=== PATIENT | female | born 1975 | race African-American/Black ===

== ENCOUNTER 2018-10-19 12:37 | Inpatient (IN) | payer MEDICARE, OTHER ==
[~2018-10-19] VITALS: Ht 175.3 cm; Wt 77.1 kg
[2018-10-19] MEDS ORDERED: Morphine Sulfate 4mg/ml Inj (IV/IM USE ONLY) IVP ONE (13:15)
[2018-10-19 13:23] VITALS: BP 119/74
[2018-10-19 13:44] LABS: ANION GAP 7 mmol/L (5-15); BLOOD UREA NITROGEN 9 mg/dL (7-18); CARBON DIOXIDE 25 MMOL/L (21-32); CHLORIDE 106 MMOL/L (98-107); CREATININE 0.9 MG/DL (0.55-1.30); POTASSIUM 3.8 MMOL/L (3.5-5.1); SODIUM 138 MMOL/L (136-145)
[2018-10-19 13:48] LABS: ALANINE AMINOTRANSFERASE 11 U/L (12-78); ALBUMIN 3.7 G/DL (3.4-5.0); ALBUMIN/GLOBULIN RATIO 0.8 (1.0-2.7); ALKALINE PHOSPHATASE 65 U/L (46-116); ASPARTATE AMINO TRANSFERASE 23 U/L (15-37); BILIRUBIN,TOTAL 0.3 MG/DL (0.2-1.0)
[2018-10-19 14:04] LABS: HEMATOCRIT 23.1 % (37.0-47.0); MEAN CORPUSCULAR VOLUME 60 FL (80-99); PLATELET COUNT 146 K/UL (150-450); RED BLOOD COUNT 3.84 M/UL (4.20-5.40); RED CELL DISTRIBUTION WIDTH 15.8 % (11.6-14.8)
[2018-10-19 14:07] LABS: HEMOGLOBIN 6.4 G/DL (12.0-16.0)
[2018-10-19 14:20] VITALS: BP 121/95
--- NOTE | 2018-10-19 14:31 | Emergency Room Report ---
History of Present Illness General Chief Complaint: Abnormal Labs Source: Patient Present Illness HPI 43-year-old female presents ED for evaluation. Patient referred here by Dr. Sommer. Patient states she had labs drawn recently which showed low hemoglobin. Patient states she has history of fibroids and is scheduled for hysterectomy tomorrow. Patient denies any active bleeding. States she feels weak. Notes some pain. Throbbing, 6 out of 10, nonradiating. Denies fevers or chills. No other aggravating relieving factors. Denies any other associated symptoms Allergies: Coded Allergies: NSAIDS (NON-STEROIDAL ANTI-INFLAMMA (Verified Allergy, Unknown, 10/19/18) Patient History Past Medical History: other - fibroids Past Surgical History: other - gastric bypass Pertinent Family History: none Social History: Denies: smoking, alcohol use, drug use Now: No Immunizations: UTD Reviewed Nursing Documentation: PMH: Agreed; PSxH: Agreed Nursing Documentation-PMH Past Medical History: No History, Except For Hx Gastrointestinal Problems: Yes - gastric bipass 2009, uterine fibroids Review of Systems All Other Systems: negative except mentioned in HPI Physical Exam Vital Signs Date Time Temp Pulse Resp B/P (MAP) Pulse Ox O2 Delivery O2 Flow Rate FiO2 10/19/18 12:40 98.4 77 17 119/58 98 Room Air Sp02 EP Interpretation: reviewed, normal General Appearance: no apparent distress, alert, GCS 15, non-toxic Head: normocephalic, atraumatic Eyes: bilateral eye normal inspection, bilateral eye PERRL ENT: hearing grossly normal, normal pharynx, no angioedema, normal voice Neck: full range of motion, supple/symm/no masses Respiratory: chest non-tender, lungs clear, normal breath sounds, speaking full sentences Cardiovascular #1: regular rate, rhythm, no edema Cardiovascular #2: 2+ carotid (R), 2+ carotid (L), 2+ radial (R), 2+ radial (L) , 2+ dorsalis pedis (R), 2+ dorsalis pedis (L) Gastrointestinal: normal bowel sounds, non tender, soft, non-distended, no guarding, no rebound Rectal: deferred Genitourinary: normal inspection, no CVA tenderness Musculoskeletal: back normal, gait/station normal, normal range of motion, non- tender Neurologic: alert, oriented x3, responsive, motor strength/tone normal, sensory intact, speech normal Psychiatric: judgement/insight normal, memory normal, mood/affect normal, no suicidal/homicidal ideation Reflexes: 3+ bicep (R), 3+ bicep (L), 3+ tricep (R), 3+ tricep (L), 3+ knee (R) , 3+ knee (L) Skin: normal color, no rash, warm/dry, well hydrated Lymphatic: no adenopathy Medical Decision Making Diagnostic Impression: Primary Impression: Anemia Qualified Codes: D64.9 - Anemia, unspecified Additional Impression: Fibroids Qualified Codes: D25.9 - Leiomyoma of uterus, unspecified ER Course Hospital Course 88-year-old female presents to ED for evaluation of weakness, poorly low hemoglobin. History of fibroids Differential diagnoses include: anemia requiring transfusion, microcytic anemia , macrocytic anemia, heavy blood loss Clinical course Patient placed on stretcher. After initial history and physical I ordered labs including CBC and type and screen. Labs- hemoglobin/hematocrit 6.4/23.1. Electrolytes okay, no leukocytosis 4 units PRBCs ordered. Vital stable. Patient scheduled for surgery tomorrow. patient will be admitted to Dr Sommer Diagnosis - anemia, fibroids Admitted to floor in serious condition Labs Test 10/19/18 13:20 White Blood Count 4.0 K/UL (4.8-10.8) Red Blood Count 3.84 M/UL (4.20-5.40) Hemoglobin 6.4 G/DL (12.0-16.0) Hematocrit 23.1 % (37.0-47.0) Mean Corpuscular Volume 60 FL (80-99) Mean Corpuscular Hemoglobin 16.7 PG (27.0-31.0) Mean Corpuscular Hemoglobin Concent 27.6 G/DL (32.0-36.0) Red Cell Distribution Width 15.8 % (11.6-14.8) Platelet Count 146 K/UL (150-450) Mean Platelet Volume 6.3 FL (6.5-10.1) Neutrophils (%) (Auto) % (45.0-75.0) Lymphocytes (%) (Auto) % (20.0-45.0) Monocytes (%) (Auto) % (1.0-10.0) Eosinophils (%) (Auto) % (0.0-3.0) Basophils (%) (Auto) % (0.0-2.0) Differential Total Cells Counted 100 Neutrophils % (Manual) 31 % (45-75) Lymphocytes % (Manual) 58 % (20-45) Monocytes % (Manual) 8 % (1-10) Eosinophils % (Manual) 2 % (0-3) Basophils % (Manual) 1 % (0-2) Band Neutrophils 0 % (0-8) Platelet Estimate Decreased Platelet Morphology Normal Hypochromasia 4+ Poikilocytosis 1+ Anisocytosis 1+ Microcytosis 4+ Prothrombin Time 10.7 SEC (9.30-11.50) Prothromb Time International Ratio 1.0 (0.9-1.1) Activated Partial Thromboplast Time 25 SEC (23-33) Sodium Level 138 MMOL/L (136-145) Potassium Level 3.8 MMOL/L (3.5-5.1) Chloride Level 106 MMOL/L (98-107) Carbon Dioxide Level 25 MMOL/L (21-32) Anion Gap 7 mmol/L (5-15) Blood Urea Nitrogen 9 mg/dL (7-18) Creatinine 0.9 MG/DL (0.55-1.30) Estimat Glomerular Filtration Rate > 60 mL/min (>60) Glucose Level 88 MG/DL (74-106) Calcium Level 9.0 MG/DL (8.5-10.1) Total Bilirubin 0.3 MG/DL (0.2-1.0) Aspartate Amino Transf (AST/SGOT) 23 U/L (15-37) Alanine Aminotransferase (ALT/SGPT) 11 U/L (12-78) Alkaline Phosphatase 65 U/L (46-116) Total Protein 8.2 G/DL (6.4-8.2) Albumin 3.7 G/DL (3.4-5.0) Globulin 4.5 g/dL Albumin/Globulin Ratio 0.8 (1.0-2.7) Lipase 120 U/L (73-393) Last Vital Signs Date Time Temp Pulse Resp B/P (MAP) Pulse Ox O2 Delivery O2 Flow Rate FiO2 10/19/18 14:20 68 17 121/95 98 Room Air 10/19/18 13:23 97.7 Status: improved Disposition: ADMITTED INPATIENT Condition: Serious Scripts No Active Prescriptions or Reported Meds Referrals: Kendrick Sommer MD (PCP) Raul Vallejo MD Oct 19, 2018 14:31
[2018-10-19] MEDS ORDERED: Zolpidem 5mg tab ORAL PRN (14:45)
[2018-10-19 16:00] VITALS: BP 126/77
[2018-10-19] MEDS: HYDROmorphone 1mg/ml Carpuject IVP PRN ×2 (16:05→20:17)
[2018-10-19 20:11] VITALS: BP 116/68
[2018-10-19] MEDS: Zolpidem 5mg tab ORAL PRN (21:06)
--- NOTE | 2018-10-19 21:15 | Consultation ---
DATE OF CONSULTATION: 10/19/2018 INTERNAL MEDICINE CONSULTATION HISTORY OF PRESENT ILLNESS: The patient is the 43-year-old woman referred by Dr. Sommer for preoperative medical evaluation and management prior to planned hysterectomy. The patient was found to have painful menstrual periods. She is known to have large fibroids in her uterus, has had two embolizations in the past. She is now scheduled for hysterectomy. PAST MEDICAL HISTORY: Include gastric bypass surgery in 2009. She lost 110 pounds. As noted, she had embolization in the past. She has had a section in 2000. She has a seizure disorder, but has had no seizures since 2001, on no medications. She has chronic anemia. ALLERGIES: None. MEDICATIONS: Pain medications for heavy menstrual periods . REVIEW OF SYSTEMS: Otherwise unremarkable. PHYSICAL EXAMINATION: GENERAL: The patient is alert and responds appropriately. VITAL SIGNS: Show normal findings. She is 5 feet and 9 inches. She is 170 pounds. HEENT: Head is normocephalic. NECK: No jugular venous distention. CHEST: Clear. CARDIAC: Rhythm is regular. ABDOMEN: Soft and nontender. The uterus is massive up to the xiphoid process and firm. The liver and spleen cannot be felt. There is no ascites. EXTREMITIES: No clubbing, cyanosis, or edema. LABORATORY STUDIES: Laboratory were studies were done in the emergency department and show severe anemia. IMPRESSIONS: 1. Severe anemia. 2. Uterine leiomyomata with massively enlarged uterus. 3. Recurrent bleeding. 4. History of morbid obesity with gastric bypass surgery. PLAN: The patient will have blood transfusions this evening to prepare for surgery tomorrow. I will follow up in the postoperative period. Miguel A Meredith M.D. DR: Mireya JOB#: [id number] CC:
[2018-10-19 21:31] VITALS: BP 115/73
[2018-10-19 21:46] VITALS: BP 115/75
[2018-10-20] VITALS (17 sets, daily range): BP systolic 97–135; BP diastolic 55–80
[2018-10-20] MEDS: HYDROmorphone 1mg/ml Carpuject IVP PRN ×2 (01:44→05:40)
[2018-10-20 02:31] LABS: HEMATOCRIT 24.1 % (37.0-47.0); HEMOGLOBIN 7.3 G/DL (12.0-16.0); MEAN CORPUSCULAR VOLUME 65 FL (80-99); PLATELET COUNT 110 K/UL (150-450); RED BLOOD COUNT 3.71 M/UL (4.20-5.40); RED CELL DISTRIBUTION WIDTH 20.7 % (11.6-14.8); WHITE BLOOD COUNT 5.4 K/UL (4.8-10.8)
[2018-10-20] MEDS: Dextrose 5%/Lactated Ringer's 1,000 ML IV SCH ×3 (05:34→23:01)
[2018-10-20] MEDS ORDERED: Dextrose 5%/Lactated Ringer's 1,000 ML IV SCH (06:00)
--- NOTE | 2018-10-20 09:08 | General Progress Note ---
Assessment/Plan Assessment/Plan 1. Severe anemia. 2. Uterine leiomyomata with massively enlarged uterus. 3. Recurrent bleeding. 4. History of morbid obesity with gastric bypass surgery. Hgb still low after 2 u another 2 u ordered surgery today c/o pain not controlled Subjective Constitutional: Denies: fever Genitourinary: Reports: pain Allergies: Coded Allergies: NSAIDS (NON-STEROIDAL ANTI-INFLAMMA (Verified Allergy, Unknown, 10/19/18) Objective Last 24 Hour Vital Signs Date Time Temp Pulse Resp B/P (MAP) Pulse Ox O2 Delivery O2 Flow Rate FiO2 10/20/18 08:00 98.9 75 19 98/59 (72) 100 10/20/18 04:00 98.0 66 18 106/61 (76) 98 10/20/18 00:25 97.5 64 18 101/55 (70) 98 10/19/18 21:46 97.4 84 115/75 (88) 10/19/18 21:31 97.8 79 115/73 (87) 10/19/18 21:00 Room Air 10/19/18 20:11 97.8 69 19 116/68 (84) 100 10/19/18 16:00 99.2 83 19 126/77 (93) 100 10/19/18 15:00 Room Air 10/19/18 14:30 98.0 74 18 124/78 100 Room Air 10/19/18 14:20 68 17 121/95 98 Room Air 10/19/18 13:50 97.7 10/19/18 13:23 97.7 70 19 119/74 100 Room Air 10/19/18 12:40 98.4 77 17 119/58 98 Room Air Intake and Output 10/19/18 10/20/18 19:00 07:00 Intake Total 118 ml Balance 118 ml Intake Oral 118 ml # Voids 1 3 Laboratory Tests 10/19/18 13:20: White Blood Count 4.0L, Red Blood Count 3.84L, Hemoglobin 6.4*L, Hematocrit 23.1L, Mean Corpuscular Volume 60L, Mean Corpuscular Hemoglobin 16.7L, Mean Corpuscular Hemoglobin Concent 27.6L, Red Cell Distribution Width 15.8H, Platelet Count 146L, Mean Platelet Volume 6.3L, Neutrophils (%) (Auto) , Lymphocytes (%) (Auto) , Monocytes (%) (Auto) , Eosinophils (%) (Auto) , Basophils (%) (Auto) , Differential Total Cells Counted 100, Neutrophils % ( Manual) 31L, Lymphocytes % (Manual) 58H, Monocytes % (Manual) 8, Eosinophils % ( Manual) 2, Basophils % (Manual) 1, Band Neutrophils 0, Platelet Estimate DecreasedL, Platelet Morphology Normal, Hypochromasia 4+, Poikilocytosis 1+, Anisocytosis 1+, Microcytosis 4+, Prothrombin Time 10.7, Prothromb Time International Ratio 1.0, Activated Partial Thromboplast Time 25, Sodium Level 138, Potassium Level 3.8, Chloride Level 106, Carbon Dioxide Level 25, Anion Gap 7, Blood Urea Nitrogen 9, Creatinine 0.9, Estimat Glomerular Filtration Rate > 60, Glucose Level 88, Calcium Level 9.0, Total Bilirubin 0.3, Aspartate Amino Transf (AST/SGOT) 23, Alanine Aminotransferase (ALT/SGPT) 11L, Alkaline Phosphatase 65, Total Protein 8.2, Albumin 3.7, Globulin 4.5, Albumin/Globulin Ratio 0.8L, Lipase 120 10/20/18 01:35: White Blood Count 5.4, Red Blood Count 3.71L, Hemoglobin 7.3L, Hematocrit 24.1L , Mean Corpuscular Volume 65#L, Mean Corpuscular Hemoglobin 19.6L, Mean Corpuscular Hemoglobin Concent 30.2L, Red Cell Distribution Width 20.7H, Platelet Count 110L, Mean Platelet Volume 6.1L, Neutrophils (%) (Auto) , Lymphocytes (%) (Auto) , Monocytes (%) (Auto) , Eosinophils (%) (Auto) , Basophils (%) (Auto) Height (Feet): 5 Height (Inches): 9.00 Weight (Pounds): 170 General Appearance: no apparent distress Cardiovascular: normal rate Respiratory/Chest: lungs clear Miguel A Meredith MD Oct 20, 2018 09:08
[2018-10-20] MEDS ORDERED: Bupivacaine w/Epi 0.25% 30ml Vial INJ ONE (10:56)
[2018-10-20] MEDS ORDERED: Bacitracin Oint 15gm Tube TOPIC ONE (10:57)
[2018-10-20] MEDS ORDERED: Zemuron 50mg/5ml Inj IV ONE (11:45)
[2018-10-20] MEDS ORDERED: Morphine Sulfate 10mg/ml Inj ONE (11:48)
[2018-10-20] MEDS ORDERED: Ketamine 500mg Inj ONE (11:48)
[2018-10-20] MEDS ORDERED: Metoclopramide 10mg/2ml Inj ONE (11:49)
[2018-10-20] MEDS ORDERED: Lidocaine 1% MPF 10mg/ml 5ml ONE (11:49)
[2018-10-20] MEDS ORDERED: Propofol 200mg/20ml IV ONE (11:49)
[2018-10-20] MEDS ORDERED: NS Irrig 1000ml ONE (11:50)
[2018-10-20] MEDS ORDERED: Sterile Water Irrig 1000ml IRRIG ONE (11:50)
--- NOTE | 2018-10-20 11:56 | Pre-Procedure Note/Attestation ---
Pre-Procedure Note/Attestation Complete Prior to Procedure Planned Procedure: not applicable Procedure Narrative: sub total abdominal hysterectomy, lysis of adhesions Indications for Procedure Pre-Operative Diagnosis: pelvic pain, symptomatic myomata Attestation I attest that I discussed the nature of the procedure; its benefits; risks and complications; and alternatives (and the risks and benefits of such alternatives ), prior to the procedure, with the patient (or the patient's legal distribution sales representative). I attest that, if there was a reasonable possibility of needing a blood transfusion, the patient (or the patient's legal distribution sales representative) was given the [facility] standardized written summary, pursuant to the [place]dy [place]a Blood Safety Act ([place] Health and Safety Code # 1645, as amended). I attest that I re-evaluated the patient just prior to the surgery and that there has been no change in the patient's H&P, except as documented below: Kendrick Sommer MD Oct 20, 2018 11:56
[2018-10-20 13:50] LABS: HEMATOCRIT 29.1 % (37.0-47.0); HEMOGLOBIN 8.8 G/DL (12.0-16.0); MEAN CORPUSCULAR VOLUME 68 FL (80-99); PLATELET COUNT 82 K/UL (150-450); RED BLOOD COUNT 4.25 M/UL (4.20-5.40); RED CELL DISTRIBUTION WIDTH 21.4 % (11.6-14.8); WHITE BLOOD COUNT 5.9 K/UL (4.8-10.8)
--- NOTE | 2018-10-20 14:04 | Anethesia Preoperative Eval ---
Anesthesia Pre-op PMH/ROS General Date of Evaluation: Oct 20, 2018 Time of Evaluation: 11:50 Anesthesiologist: nanette ASA Score: ASA 2 Mallampati Score Class I : Soft palate, uvula, fauces, pillars visible Class II: Soft palate, uvula, fauces visible Class III: Soft palate, base of uvula visible Class IV: Only hard plate visible Mallampati Classification: Class II Surgeon: silvia Diagnosis: fibroids Surgical Procedure: myomectomy Anesthesia History: none Family History: no anesthesia problems Allergies: Coded Allergies: NSAIDS (NON-STEROIDAL ANTI-INFLAMMA (Verified Allergy, Unknown, 10/19/18) Medications: see eMAR Patient NPO?: Yes NPO Date: Oct 20, 2018 NPO Time: 0000 Past Medical History Cardiovascular: Denies: HTN, CAD, MT, valve dz, arrhythmia, other Pulmonary: Denies: asthma, COPD, MINESH, other Gastrointestinal/Genitourinary: Denies: GERD, CRI, ESRD, other Neurologic/Psychiatric: Denies: dementia, CVA, depression/anxiety, TIA, other Endocrine: Denies: DM, hypothyroidism, steroids, other HEENT: Denies: cataract (L), cataract (R), glaucoma, [place] (L), [place] (R), other Hematology/Immune: Reports: anemia; Denies: DVT, bleeding disorder, other Musculoskeletal/Integumentary: Denies: OA, RA, DJD, DDD, edema, other PSxH Narrative: embolization Anesthesia Pre-op Phys. Exam Physician Exam Last Vital Signs Date Time Temp Pulse Resp B/P (MAP) Pulse Ox O2 Delivery O2 Flow Rate FiO2 10/20/18 09:00 Room Air 10/20/18 08:00 98.9 75 19 98/59 (72) 100 Constitutional: NAD Neurologic: CN 2-12 intact Cardiovascular: RRR Respiratory: CTA Gastrointestinal: S/NT/ND Airway Exam Mallampati Classification 2 Mallampati Score: Class II MO: full Neck: normal ROM: full Dentures: no upper, no lower Anesthesia Pre-op A/P Labs Hematology Test 10/20/18 01:35 10/20/18 13:00 White Blood Count 5.4 K/UL (4.8-10.8) 5.9 K/UL (4.8-10.8) Red Blood Count 3.71 M/UL (4.20-5.40) L 4.25 M/UL (4.20-5.40) Hemoglobin 7.3 G/DL (12.0-16.0) L 8.8 G/DL (12.0-16.0) L Hematocrit 24.1 % (37.0-47.0) L 29.1 % (37.0-47.0) L Mean Corpuscular Volume 65 FL (80-99) #L 68 FL (80-99) L Mean Corpuscular Hemoglobin 19.6 PG (27.0-31.0) L 20.6 PG (27.0-31.0) L Mean Corpuscular Hemoglobin Concent 30.2 G/DL (32.0-36.0) L 30.1 G/DL (32.0-36.0) L Red Cell Distribution Width 20.7 % (11.6-14.8) H 21.4 % (11.6-14.8) H Platelet Count 110 K/UL (150-450) L 82 K/UL (150-450) L Mean Platelet Volume 6.1 FL (6.5-10.1) L 6.2 FL (6.5-10.1) L Neutrophils (%) (Auto) % (45.0-75.0) % (45.0-75.0) Lymphocytes (%) (Auto) % (20.0-45.0) % (20.0-45.0) Monocytes (%) (Auto) % (1.0-10.0) % (1.0-10.0) Eosinophils (%) (Auto) % (0.0-3.0) % (0.0-3.0) Basophils (%) (Auto) % (0.0-2.0) % (0.0-2.0) Neutrophils % (Manual) Pending Lymphocytes % (Manual) Pending Platelet Estimate Pending Platelet Morphology Pending Studies Pre-op Studies: EKG - s Risk Assessment & Plan Assessment: VSS Plan: general Status Change Before Surgery: No Pre-Antibiotics Drug: ancef Given Within 1 Hr of Incision: Yes Time Given: 12:10 Madhavi Murry CRNA Oct 20, 2018 14:04
[2018-10-20] MEDS ORDERED: Neostigmine 1mg/ml 10ml Inj ONE (14:10)
[2018-10-20] MEDS ORDERED: Glycopyrrolate 0.2mg/ml 1ml Vial ONE (14:10)
[2018-10-20 14:22] LABS: APPEARANCE,URINE SLIGHTLY CLOUDY; BILIRUBIN, URINE NEGATIVE (NEGATIVE); COLOR,URINE PALE YELLOW; GLUCOSE, URINE (UA) NEGATIVE (NEGATIVE); KETONES,URINE NEGATIVE (NEGATIVE); LEUKOCYTE ESTERASE ,URINE NEGATIVE (NEGATIVE); NITRITE,URINE POSITIVE (NEGATIVE); PH,URINE 7 (4.5-8.0); PROTEIN,URINE 1+ (NEGATIVE); UROBILINOGEN,URINE NORMAL MG/DL (0.0-1.0)
[2018-10-20] MEDS ORDERED: fentaNYL 100 mcg/2 mL IV ONE (14:51)
[2018-10-20] MEDS: fentaNYL 100 mcg/2 mL IV PRN ×2 (14:52→15:02)
[2018-10-20] MEDS ORDERED: DiphenhydrAMINE 50mg/ml Inj ONE (14:53)
--- NOTE | 2018-10-20 14:53 | Immediate Post-Op Evaluation ---
Immediate Post-Op Evalulation Immediate Post-Op Evalulation Procedure: myomectomy Date of Evaluation: Oct 20, 2018 Time of Evaluation: 14:54 IV Fluids: 1000 Blood Products: 250 Estimated Blood Loss: 100 Urinary Output: 400 Blood Pressure Systolic: 132 Blood Pressure Diastolic: 81 Pulse Rate: 71 Respiratory Rate: 14 O2 Sat by Pulse Oximetry: 100 Temperature (Fahrenheit): 97.5 Nausea: No Vomiting: No Complications none Patient Status: awake, reacts, patent Hydration Status: adequate Drug: ancef Given Within 1 Hr of Incision: Yes Madhavi Murry CRNA Oct 20, 2018 14:53
[2018-10-20] MEDS ORDERED: Isovue-300 100ml vial INJ PRN (14:54)
[2018-10-20] MEDS ORDERED: LORazepam Inj 2mg/ml 1ml IV PRN (15:00)
[2018-10-20] MEDS ORDERED: Hydromorphone 0.5mg/0.5ml inj IVP PRN (15:00)
[2018-10-20] MEDS ORDERED: DiphenhydrAMINE 50mg/ml Inj IVP PRN (15:00)
--- NOTE | 2018-10-20 17:03 | 48 Hour Post Anesthesia Eval ---
Post Anesthesia Evaluation Procedure: myomectomy Date of Evaluation: Oct 20, 2018 Time of Evaluation: 17:03 Blood Pressure Systolic: 125 0: 77 Pulse Rate: 75 Respiratory Rate: 14 O2 Sat by Pulse Oximetry: 98 Airway: patent Nausea: No Vomiting: No Hydration Status: adequate Cardiopulmonary Status: stable Mental Status/LOC: patient returned to baseline Follow-up Care/Observations: na Post-Anesthesia Complications: none Follow-up care needed: N/A Madhavi Murry CRNA Oct 20, 2018 17:03
--- NOTE | 2018-10-20 17:21 | Brief Operative Note ---
Immediate Post Operative Note Operative Note Chief Complaint: pelvic pain, menorrhagia Pre-op Diagnosis: pelvic pain, symptomatic myomata Procedure: sub total hysterectomy, lysis of adhesions Post-op Diagnosis: same, improved, plus umbilical hernia repair needed Post-op Diagnosis: same as pre-op plus - pelvic small bowel adhesions Surgeon: kendrick murray Engraving Patternmaker: nabeel wise Additional Surgeons: kathrin mejia Anesthesiologist: siobhan duran Anesthesia: general Specimen: yes Complications: none Condition: stable Fluids: 3000 cc crystalloid, i unit prbc Estimated Blood Loss: volume - 100cc Drains: none Implant(s) used?: No - dictation # [id number] Kendrick Murray MD Oct 20, 2018 17:21
--- NOTE | 2018-10-20 21:03 | Brief Operative Note ---
Immediate Post Operative Note Operative Note Pre-op Diagnosis: pelvic pain, symptomatic myomata Procedure: subtotal hysterectomy; lysis of adhesions Post-op Diagnosis: pelvic pain, symptomatic myomata Surgeon: Kemal Additional Surgeons: Gloria Anesthesia: general Specimen: yes Complications: none Condition: stable Fluids: see records Estimated Blood Loss: volume Drains: none Implant(s) used?: No Kaushik Castro Oct 20, 2018 21:03
[2018-10-20] MEDS ORDERED: D5W 275ml ONE (22:46)
[2018-10-21] VITALS: BP 111/64
[2018-10-21 04:00] VITALS: BP 116/71
[2018-10-21] MEDS: Dextrose 5%/Lactated Ringer's 1,000 ML IV SCH (06:59)
[2018-10-21 07:57] LABS: HEMATOCRIT 32.4 % (37.0-47.0); HEMOGLOBIN 9.8 G/DL (12.0-16.0); MEAN CORPUSCULAR VOLUME 68 FL (80-99); PLATELET COUNT 62 K/UL (150-450); RED BLOOD COUNT 4.75 M/UL (4.20-5.40); RED CELL DISTRIBUTION WIDTH 21.9 % (11.6-14.8); WHITE BLOOD COUNT 9.1 K/UL (4.8-10.8)
[2018-10-21 08:00] VITALS: BP 111/64
[2018-10-21 08:02] LABS: ANION GAP 5 mmol/L (5-15); BLOOD UREA NITROGEN 4 mg/dL (7-18); CARBON DIOXIDE 27 MMOL/L (21-32); CHLORIDE 106 MMOL/L (98-107); CREATININE 0.7 MG/DL (0.55-1.30); POTASSIUM 3.4 MMOL/L (3.5-5.1); SODIUM 138 MMOL/L (136-145)
[2018-10-21] MEDS ORDERED: PCA Education Pamphlet MISC ONE (10:45)
[2018-10-21] MEDS ORDERED: Rate Change PCA 1 Each MISC PRN (10:45)
[2018-10-21] MEDS ORDERED: PCA HYDROmorphone 1mg/ml 30 ML IV PRN (10:45)
--- NOTE | 2018-10-21 10:59 | Diagnostic Imaging Report ---
Indication: Abdominal pain, suspected ureteral injury, status post hysterectomy Technique: IV administration nonionic contrast. No oral contrast utilized. Precontrast and multiphasic postcontrast spiral acquisitions obtained through the abdomen and pelvis Multiplanar reconstructions were generated. Total dose length product 2718 mGycm. CTDIvol(s) 17, 18, 17, 17 mGy. Radiation dose was minimized using automated exposure control Comparison: none Findings: Patient is status post supracervical hysterectomy. Small amount of heterogeneous material below the hysterectomy bed probably mostly represents the residual cervix, possibly with a small amount of blood. Small amount of high attenuation fluid, presumably bloody, is seen in the pelvic cul-de-sac. There is also some fluid adjacent to the tip of the right hepatic lobe. The right ovary appears normal. What is probably the left ovary appears normal, although this is less definitively visualized as there is considerable unopacified bowel in the area. There is a midline incision with overlying skin timur. Gas bubbles are seen within the subcutaneous fat. Infiltration of the midline subcutaneous fat presumably represents postsurgical change with a small amount of blood. There is also likely a tiny hematoma anterior to the bladder. There is free intraperitoneal air present. Both kidneys opacify symmetrically. On the 5 minute delayed images, contrast is seen filling both renal collecting systems and proximal ureters. Contrast is also seen within the bladder. No evidence of contrast extravasation demonstrated. There is considerable fluid within the bladder despite apparent adequate position of Gaspar catheter. There is evidence of prior gastric bypass surgery with an antecolic Sharon limb. There is mild dilatation of the small bowel at the level of the jejunojejunostomy. No small bowel distention otherwise. The distal esophagus is mildly distended. The appendix is not definitely identified, but there are no findings to suggest acute appendicitis. The gallbladder is distended. No definite stones or wall thickening. The liver, bile ducts, pancreas, spleen, adrenals, right kidney are unremarkable. Left kidney demonstrates a subcentimeter low-attenuation lesion which is too small to characterize. The included lung bases demonstrate trace bilateral pleural fluid. There is dependent and compressive atelectatic changes posteriorly, as well as mild basilar interstitial septal thickening on the left. A calcification is seen within the pulmonary parenchyma on the right. The bones are unremarkable. Impression: Postsurgical changes, status post supracervical open hysterectomy, as described. No evidence of ureteral injury or obstruction or other complication. The bladder is distended with urine, despite the presence and adequate position of Gaspar catheter. Dysfunctional Agspar catheter possible Trace bilateral pleural effusions. Basilar atelectatic changes Evidence of prior gastric bypass surgery Distended gallbladder, but no evidence of stones or secondary signs. Other findings as noted, including probable small left renal cyst, old granulomatous disease within the right lung Findings discussed by phone with Dr. Sommer at the time of interpretation The CT scanner at [facility] is accredited by the [employer] and the scans are performed using protocols designed to limit radiation exposure to as low as reasonably achievable to attain images of sufficient resolution adequate for diagnostic evaluation.
--- NOTE | 2018-10-21 11:25 | General Progress Note ---
Assessment/Plan Assessment/Plan 1. Severe anemia. 2. Uterine leiomyomata with massively enlarged uterus. 3. Recurrent bleeding. 4. History of morbid obesity with gastric bypass surgery. 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 K rx Subjective Gastrointestinal/Abdominal: Reports: abdominal pain Allergies: Coded Allergies: NSAIDS (NON-STEROIDAL ANTI-INFLAMMA (Verified Allergy, Unknown, 10/19/18) Objective Last 24 Hour Vital Signs Date Time Temp Pulse Resp B/P (MAP) Pulse Ox O2 Delivery O2 Flow Rate FiO2 10/21/18 09:00 Room Air 10/21/18 08:00 98.9 73 18 111/64 (80) 93 10/21/18 04:00 99.0 77 18 116/71 (86) 100 10/21/18 00:00 98.9 73 18 111/64 (80) 93 10/20/18 21:00 Room Air 10/20/18 20:00 98.8 75 18 118/78 (91) 100 10/20/18 19:20 99.6 92 18 119/78 (92) 100 10/20/18 17:03 75 14 98 10/20/18 17:00 97.8 81 19 121/80 (94) 100 10/20/18 16:30 97.8 73 18 126/72 (90) 100 10/20/18 16:00 98.3 79 20 97/60 (72) 99 10/20/18 16:00 98.0 72 16 125/77 100 Nasal Cannula 3 10/20/18 15:45 74 14 126/79 100 Nasal Cannula 3 10/20/18 15:32 98.0 10/20/18 15:30 74 15 128/76 100 Nasal Cannula 3 10/20/18 15:15 70 14 121/75 100 Nasal Cannula 3 10/20/18 15:02 72 19 128/74 100 Nasal Cannula 3 10/20/18 15:00 74 14 135/75 100 Nasal Cannula 3 10/20/18 14:53 71 14 100 10/20/18 14:52 81 18 127/78 99 Simple Mask 6 10/20/18 14:40 86 17 126/70 99 Simple Mask 6 10/20/18 14:35 81 15 133/70 99 Simple Mask 6 10/20/18 14:30 97.0 80 14 129/66 99 Simple Mask 6 Intake and Output 12/4/18 12/5/18 19:00 07:00 Intake Total 3150 ml 1570 ml Output Total 500 ml 1225 ml Balance 2650 ml 345 ml Intake Oral 240 ml IV Total 1600 ml 1080 ml Blood Product 1550 ml 250 ml Output Urine Total 400 ml 1225 ml Estimated Blood Loss 100 ml Laboratory Tests 10/20/18 13:00: White Blood Count 5.9, Red Blood Count 4.25, Hemoglobin 8.8L, Hematocrit 29.1L, Mean Corpuscular Volume 68L, Mean Corpuscular Hemoglobin 20.6L, Mean Corpuscular Hemoglobin Concent 30.1L, Red Cell Distribution Width 21.4H, Platelet Count 82L, Mean Platelet Volume 6.2L, Neutrophils (%) (Auto) , Lymphocytes (%) (Auto) , Monocytes (%) (Auto) , Eosinophils (%) (Auto) , Basophils (%) (Auto) , Differential Total Cells Counted 100, Neutrophils % ( Manual) 49, Lymphocytes % (Manual) 40, Monocytes % (Manual) 9, Eosinophils % ( Manual) 1, Basophils % (Manual) 0, Band Neutrophils 1, Platelet Estimate DecreasedL, Platelet Morphology Normal, Hypochromasia 3+, Poikilocytosis 1+, Anisocytosis 3+, Microcytosis 2+, Ovalocytes Occasional 10/20/18 13:55: Urine Color Pale yellow, Urine Appearance Slightly cloudy, Urine pH 7, Urine Specific [place] 1.010, Urine Protein 1+H, Urine Glucose (UA) Negative, Urine Ketones Negative, Urine Blood 4+H, Urine Nitrite PositiveH, Urine Bilirubin Negative, Urine Urobilinogen Normal, Urine Leukocyte Esterase Negative, Urine RBC 15-20H, Urine WBC 0-2, Urine Squamous Epithelial Cells Few, Urine Bacteria ManyH, Urine HCG, Qualitative Negative 10/21/18 07:44: White Blood Count 9.1#, Red Blood Count 4.75, Hemoglobin 9.8L, Hematocrit 32.4L , Mean Corpuscular Volume 68L, Mean Corpuscular Hemoglobin 20.6L, Mean Corpuscular Hemoglobin Concent 30.3L, Red Cell Distribution Width 21.9H, Platelet Count 62L, Mean Platelet Volume 5.9L, Neutrophils (%) (Auto) , Lymphocytes (%) (Auto) , Monocytes (%) (Auto) , Eosinophils (%) (Auto) , Basophils (%) (Auto) , Differential Total Cells Counted 100, Neutrophils % ( Manual) 69, Lymphocytes % (Manual) 28, Monocytes % (Manual) 3, Eosinophils % ( Manual) 0, Basophils % (Manual) 0, Band Neutrophils 0, Platelet Estimate DecreasedL, Platelet Morphology Normal, Hypochromasia 2+, Anisocytosis 3+, Microcytosis 3+, Sodium Level 138, Potassium Level 3.4L, Chloride Level 106, Carbon Dioxide Level 27, Anion Gap 5, Blood Urea Nitrogen 4L, Creatinine 0.7, Estimat Glomerular Filtration Rate > 60, Glucose Level 100, Calcium Level 9.0 Height (Feet): 5 Height (Inches): 9.00 Weight (Pounds): 170 General Appearance: no apparent distress Cardiovascular: normal rate Respiratory/Chest: lungs clear Abdomen: soft, tender - at surgical site Miguel A Meredith MD Oct 21, 2018 11:25
[2018-10-21 12:00] VITALS: BP 131/70
--- NOTE | 2018-10-21 12:51 | General Surgery Progress Note ---
General Surgery-Progress Note Subjective Day of Surgery: october 20 Procedure Performed sub total hysterectomy, lysis of adhesions Symptoms: pain same, tolerating diet, voiding well, passing flatus Objective Last 24 Hour Vital Signs Date Time Temp Pulse Resp B/P (MAP) Pulse Ox O2 Delivery O2 Flow Rate FiO2 10/21/18 09:00 Room Air 10/21/18 08:00 98.9 73 18 111/64 (80) 93 10/21/18 04:00 99.0 77 18 116/71 (86) 100 10/21/18 00:00 98.9 73 18 111/64 (80) 93 10/20/18 21:00 Room Air 10/20/18 20:00 98.8 75 18 118/78 (91) 100 10/20/18 19:20 99.6 92 18 119/78 (92) 100 10/20/18 17:03 75 14 98 10/20/18 17:00 97.8 81 19 121/80 (94) 100 10/20/18 16:30 97.8 73 18 126/72 (90) 100 10/20/18 16:00 98.3 79 20 97/60 (72) 99 10/20/18 16:00 98.0 72 16 125/77 100 Nasal Cannula 3 10/20/18 15:45 74 14 126/79 100 Nasal Cannula 3 10/20/18 15:32 98.0 10/20/18 15:30 74 15 128/76 100 Nasal Cannula 3 10/20/18 15:15 70 14 121/75 100 Nasal Cannula 3 10/20/18 15:02 72 19 128/74 100 Nasal Cannula 3 10/20/18 15:00 74 14 135/75 100 Nasal Cannula 3 10/20/18 14:53 71 14 100 10/20/18 14:52 81 18 127/78 99 Simple Mask 6 10/20/18 14:40 86 17 126/70 99 Simple Mask 6 10/20/18 14:35 81 15 133/70 99 Simple Mask 6 10/20/18 14:30 97.0 80 14 129/66 99 Simple Mask 6 I&O Intake and Output 10/20/18 10/21/18 19:00 07:00 Intake Total 3150 ml 1570 ml Output Total 500 ml 1225 ml Balance 2650 ml 345 ml Intake Oral 240 ml IV Total 1600 ml 1080 ml Blood Product 1550 ml 250 ml Output Urine Total 400 ml 1225 ml Estimated Blood Loss 100 ml Dressing: dry Wound: clean, dry, intact Drains: none Cardiovascular: RSR Respiratory: clear Abdomen: soft, flat, scaphoid, tenderness, present bowel sounds Laboratory Tests Test 10/20/18 13:00 10/20/18 13:55 10/21/18 07:44 White Blood Count 5.9 K/UL (4.8-10.8) 9.1 K/UL (4.8-10.8) # Red Blood Count 4.25 M/UL (4.20-5.40) 4.75 M/UL (4.20-5.40) Hemoglobin 8.8 G/DL (12.0-16.0) L 9.8 G/DL (12.0-16.0) L Hematocrit 29.1 % (37.0-47.0) L 32.4 % (37.0-47.0) L Mean Corpuscular Volume 68 FL (80-99) L 68 FL (80-99) L Mean Corpuscular Hemoglobin 20.6 PG (27.0-31.0) L 20.6 PG (27.0-31.0) L Mean Corpuscular Hemoglobin Concent 30.1 G/DL (32.0-36.0) L 30.3 G/DL (32.0-36.0) L Red Cell Distribution Width 21.4 % (11.6-14.8) H 21.9 % (11.6-14.8) H Platelet Count 82 K/UL (150-450) L 62 K/UL (150-450) L Mean Platelet Volume 6.2 FL (6.5-10.1) L 5.9 FL (6.5-10.1) L Neutrophils (%) (Auto) % (45.0-75.0) % (45.0-75.0) Lymphocytes (%) (Auto) % (20.0-45.0) % (20.0-45.0) Monocytes (%) (Auto) % (1.0-10.0) % (1.0-10.0) Eosinophils (%) (Auto) % (0.0-3.0) % (0.0-3.0) Basophils (%) (Auto) % (0.0-2.0) % (0.0-2.0) Differential Total Cells Counted 100 100 Neutrophils % (Manual) 49 % (45-75) 69 % (45-75) Lymphocytes % (Manual) 40 % (20-45) 28 % (20-45) Monocytes % (Manual) 9 % (1-10) 3 % (1-10) Eosinophils % (Manual) 1 % (0-3) 0 % (0-3) Basophils % (Manual) 0 % (0-2) 0 % (0-2) Band Neutrophils 1 % (0-8) 0 % (0-8) Platelet Estimate Decreased L Decreased L Platelet Morphology Normal Normal Hypochromasia 3+ 2+ Poikilocytosis 1+ Anisocytosis 3+ 3+ Microcytosis 2+ 3+ Ovalocytes Occasional Urine Color Pale yellow Urine Appearance Slightly cloudy Urine pH 7 (4.5-8.0) Urine Specific [place] 1.010 (1.005-1.035) Urine Protein 1+ (NEGATIVE) H Urine Glucose (UA) Negative (NEGATIVE) Urine Ketones Negative (NEGATIVE) Urine Blood 4+ (NEGATIVE) H Urine Nitrite Positive (NEGATIVE) H Urine Bilirubin Negative (NEGATIVE) Urine Urobilinogen Normal MG/DL (0.0-1.0) Urine Leukocyte Esterase Negative (NEGATIVE) Urine RBC 15-20 /HPF (0 - 2) H Urine WBC 0-2 /HPF (0 - 2) Urine Squamous Epithelial Cells Few /LPF (NONE/OCC) Urine Bacteria Many /HPF (NONE) H Urine HCG, Qualitative Negative (NEGATIVE) Sodium Level 138 MMOL/L (136-145) Potassium Level 3.4 MMOL/L (3.5-5.1) L Chloride Level 106 MMOL/L (98-107) Carbon Dioxide Level 27 MMOL/L (21-32) Anion Gap 5 mmol/L (5-15) Blood Urea Nitrogen 4 mg/dL (7-18) L Creatinine 0.7 MG/DL (0.55-1.30) Estimat Glomerular Filtration Rate > 60 mL/min (>60) Glucose Level 100 MG/DL (74-106) Calcium Level 9.0 MG/DL (8.5-10.1) Imaging CT urogram, no extravasation, no obstruction, Assessment Post-op Diagnosis same, improved, plus umbilical hernia repair needed Plan Additional Comments ambulate, ACQUISITIONS ANALYST for pain control, low K+ will supplement. Kendrick Sommer MD Oct 21, 2018 12:51
--- NOTE | 2018-10-21 13:17 | Consultation ---
History of Present Illness General Date patient seen: Oct 21, 2018 Chief Complaint: Abnormal Labs Present Illness HPI 43 F with history as noted in H&P who is here for planned subtotal hysterectomy. Prior tubal ligation and large uterus and prior ventral hernia repairs. General surgery called to assist in case of adhesions and adherent bowel. Also to assist with post operative care / management. Allergies: Coded Allergies: NSAIDS (NON-STEROIDAL ANTI-INFLAMMA (Verified Allergy, Unknown, 10/19/18) Medication History No Active Prescriptions or Reported Meds Patient History History Provided By: Patient, Medical Record, PMD Healthcare decision maker Resuscitation status Full Code Advanced Directive on File Past Medical/Surgical History Past Medical/Surgical History: (1) Anemia (2) Fibroids (3) Anemia Review of Systems All Other Systems: negative except mentioned in HPI Physical Exam General Appearance: no apparent distress, alert Lines, tubes and drains: peripheral HEENT: mucous membranes moist Neck: normal inspection Respiratory/Chest: normal breath sounds, no respiratory distress, no accessory muscle use Cardiovascular/Chest: regular rhythm Abdomen: normal bowel sounds, soft, no organomegaly, other - prior umbilical hernia noted with recurrence and mesh palpable. pelvic mass Extremities: normal inspection Skin Exam: warm/dry Neurologic: alert, oriented x 3 Last 24 Hour Vital Signs Date Time Temp Pulse Resp B/P (MAP) Pulse Ox O2 Delivery O2 Flow Rate FiO2 10/21/18 09:00 Room Air 10/21/18 08:00 98.9 73 18 111/64 (80) 93 10/21/18 04:00 99.0 77 18 116/71 (86) 100 10/21/18 00:00 98.9 73 18 111/64 (80) 93 10/20/18 21:00 Room Air 10/20/18 20:00 98.8 75 18 118/78 (91) 100 10/20/18 19:20 99.6 92 18 119/78 (92) 100 10/20/18 17:03 75 14 98 10/20/18 17:00 97.8 81 19 121/80 (94) 100 10/20/18 16:30 97.8 73 18 126/72 (90) 100 10/20/18 16:00 98.3 79 20 97/60 (72) 99 10/20/18 16:00 98.0 72 16 125/77 100 Nasal Cannula 3 10/20/18 15:45 74 14 126/79 100 Nasal Cannula 3 10/20/18 15:32 98.0 10/20/18 15:30 74 15 128/76 100 Nasal Cannula 3 10/20/18 15:15 70 14 121/75 100 Nasal Cannula 3 10/20/18 15:02 72 19 128/74 100 Nasal Cannula 3 10/20/18 15:00 74 14 135/75 100 Nasal Cannula 3 10/20/18 14:53 71 14 100 10/20/18 14:52 81 18 127/78 99 Simple Mask 6 10/20/18 14:40 86 17 126/70 99 Simple Mask 6 10/20/18 14:35 81 15 133/70 99 Simple Mask 6 10/20/18 14:30 97.0 80 14 129/66 99 Simple Mask 6 Intake and Output 10/20/18 10/21/18 19:00 07:00 Intake Total 3150 ml 1570 ml Output Total 500 ml 1225 ml Balance 2650 ml 345 ml Intake Oral 240 ml IV Total 1600 ml 1080 ml Blood Product 1550 ml 250 ml Output Urine Total 400 ml 1225 ml Estimated Blood Loss 100 ml Laboratory Tests Test 10/20/18 13:55 10/21/18 07:44 Urine Color Pale yellow Urine Appearance Slightly cloudy Urine pH 7 (4.5-8.0) Urine Specific [place] 1.010 (1.005-1.035) Urine Protein 1+ (NEGATIVE) H Urine Glucose (UA) Negative (NEGATIVE) Urine Ketones Negative (NEGATIVE) Urine Blood 4+ (NEGATIVE) H Urine Nitrite Positive (NEGATIVE) H Urine Bilirubin Negative (NEGATIVE) Urine Urobilinogen Normal MG/DL (0.0-1.0) Urine Leukocyte Esterase Negative (NEGATIVE) Urine RBC 15-20 /HPF (0 - 2) H Urine WBC 0-2 /HPF (0 - 2) Urine Squamous Epithelial Cells Few /LPF (NONE/OCC) Urine Bacteria Many /HPF (NONE) H Urine HCG, Qualitative Negative (NEGATIVE) White Blood Count 9.1 K/UL (4.8-10.8) # Red Blood Count 4.75 M/UL (4.20-5.40) Hemoglobin 9.8 G/DL (12.0-16.0) L Hematocrit 32.4 % (37.0-47.0) L Mean Corpuscular Volume 68 FL (80-99) L Mean Corpuscular Hemoglobin 20.6 PG (27.0-31.0) L Mean Corpuscular Hemoglobin Concent 30.3 G/DL (32.0-36.0) L Red Cell Distribution Width 21.9 % (11.6-14.8) H Platelet Count 62 K/UL (150-450) L Mean Platelet Volume 5.9 FL (6.5-10.1) L Neutrophils (%) (Auto) % (45.0-75.0) Lymphocytes (%) (Auto) % (20.0-45.0) Monocytes (%) (Auto) % (1.0-10.0) Eosinophils (%) (Auto) % (0.0-3.0) Basophils (%) (Auto) % (0.0-2.0) Differential Total Cells Counted 100 Neutrophils % (Manual) 69 % (45-75) Lymphocytes % (Manual) 28 % (20-45) Monocytes % (Manual) 3 % (1-10) Eosinophils % (Manual) 0 % (0-3) Basophils % (Manual) 0 % (0-2) Band Neutrophils 0 % (0-8) Platelet Estimate Decreased L Platelet Morphology Normal Hypochromasia 2+ Anisocytosis 3+ Microcytosis 3+ Sodium Level 138 MMOL/L (136-145) Potassium Level 3.4 MMOL/L (3.5-5.1) L Chloride Level 106 MMOL/L (98-107) Carbon Dioxide Level 27 MMOL/L (21-32) Anion Gap 5 mmol/L (5-15) Blood Urea Nitrogen 4 mg/dL (7-18) L Creatinine 0.7 MG/DL (0.55-1.30) Estimat Glomerular Filtration Rate > 60 mL/min (>60) Glucose Level 100 MG/DL (74-106) Calcium Level 9.0 MG/DL (8.5-10.1) Height (Feet): 5 Height (Inches): 9.00 Weight (Pounds): 170 Medications Current Medications Medications (Trade) Dose Ordered Sig/Kyleigh Route PRN Reason Start Time Stop Time Status Last Admin Dose Admin Hydromorphone HCl 30 ml @ 0 mls/hr Q24H PRN IV For Pain 10/21/18 10:45 10/23/18 10:44 10/21/18 12:39 Hydromorphone HCl (Dilaudid) 2 mg Q3H PRN SUBQ Severe Pain (Pain Scale 7-10) 10/21/18 10:45 10/23/18 10:44 Hydromorphone HCl (Dilaudid) 2 mg Q4H PRN IVP Moderate Pain (Pain Scale 4-6) 10/21/18 10:45 10/23/18 10:44 10/21/18 12:05 Iopamidol (Isovue-300 100ml) 100 ml NOW PRN INJ Radiology Procedure 10/20/18 14:54 10/21/18 23:59 Miscellaneous Medication (PST SUPERVISOR Rate Change) 1 ea DAILY PRN MISC rate change 10/21/18 10:45 10/23/18 10:44 Miscellaneous Medication (PST SUPERVISOR shift volume) 1 ea Q12HR@0700,1900 MISC 10/21/18 19:00 10/23/18 18:59 Naloxone HCl (Narcan) 0.1 mg PRN IV RR<10 SBP<90 10/21/18 10:45 10/23/18 10:44 Potassium Chloride 30 meq/ Dextrose/Lactated Ringer's 1,015 ml @ 120 mls/hr Q8H28M IV 10/21/18 13:00 11/20/18 12:59 Zolpidem Tartrate (Ambien) 5 mg HSPRN PRN ORAL Insomnia 10/19/18 19:00 10/26/18 18:59 10/19/18 21:06 Assessment/Plan Problem List: (1) Fibroids Assessment & Plan: s/p ex lap, subtotal hysterectomy, lysis of adhesions recovering labs noted abd soft, mild distention, tender, dressings c/d/i -clear liquids -ambulate and out of bed -PST SUPERVISOR -Rx as written -incentive spirometry -AM labs will follow with recs. thank you ICD Codes: D25.9 - Leiomyoma of uterus, unspecified SNOMED: [id number] Qualifiers: Qualified Codes: D25.9 - Leiomyoma of uterus, unspecified Status: stable Kaushik Castro Oct 21, 2018 13:17
[2018-10-21] MEDS: Potassium Chloride 30 MEQ in Dextrose 5%/Lactated Ringer's 1,000 ML IV SCH ×2 (13:29→21:28)
[2018-10-21] MEDS ORDERED: Zolpidem 5mg tab ORAL PRN (14:15)
[2018-10-21 16:00] VITALS: BP 125/78
[2018-10-21] MEDS: PCA shift volume MISC SCH (19:20)
[2018-10-21 20:55] VITALS: BP 124/88
[2018-10-21] MEDS: Zolpidem 5mg tab ORAL PRN (21:08)
[2018-10-22 00:06] VITALS: BP 129/82
[2018-10-22 04:39] VITALS: BP 130/84
[2018-10-22] MEDS: Potassium Chloride 30 MEQ in Dextrose 5%/Lactated Ringer's 1,000 ML IV SCH ×3 (05:31→22:56)
[2018-10-22] MEDS: PCA shift volume MISC SCH (07:33)
[2018-10-22 08:00] VITALS: BP 142/69
[2018-10-22] MEDS: Docusate 100mg cap ORAL SCH ×2 (10:23→18:20)
[2018-10-22] MEDS: oxyCODONE HCL/Acetaminophen 5/325mg ORAL PRN ×4 (10:29→22:53)
--- NOTE | 2018-10-22 11:26 | General Surgery Progress Note ---
General Surgery-Progress Note Subjective Day of Surgery: october 20 Procedure Performed sub total hysterectomy, lysis of adhesions Symptoms: improved, tolerating diet, voiding well, BM Objective Last 24 Hour Vital Signs Date Time Temp Pulse Resp B/P (MAP) Pulse Ox O2 Delivery O2 Flow Rate FiO2 10/22/18 04:39 98.9 77 17 130/84 (99) 98 10/22/18 04:00 16 10/22/18 00:06 98.2 78 18 129/82 (98) 97 10/22/18 00:00 16 10/21/18 21:00 Room Air 10/21/18 20:55 98.4 82 19 124/88 (100) 97 10/21/18 20:00 16 10/21/18 16:00 99.3 82 16 125/78 (94) 100 10/21/18 15:26 Room Air 10/21/18 15:00 16 10/21/18 14:30 16 10/21/18 14:00 16 10/21/18 13:45 16 10/21/18 13:30 16 10/21/18 13:15 16 10/21/18 12:00 99.3 72 18 131/70 (90) 100 I&O Intake and Output 10/21/18 10/22/18 18:59 06:59 Intake Total 1440 ml 840 ml Output Total 950 ml Balance 490 ml 840 ml Intake Oral 120 ml 360 ml IV Total 1320 ml 480 ml Output Urine Total 950 ml # Voids 2 Dressing: dry Wound: clean Drains: none Cardiovascular: RSR Respiratory: clear Abdomen: soft, flat, scaphoid, tenderness, present bowel sounds Assessment Post-op Diagnosis same, improved, plus umbilical hernia repair needed Plan Additional Comments placed on oral analgesic, may be discharged when pain controlled by oral medication. Kendrick Sommer MD Oct 22, 2018 11:26
[2018-10-22 12:00] VITALS: BP 110/72
--- NOTE | 2018-10-22 13:28 | General Progress Note ---
Assessment/Plan Assessment/Plan 1. Severe anemia, improved 2. Uterine leiomyomata with massively enlarged uterus. 3. Recurrent bleeding. 4. History of morbid obesity with gastric bypass surgery. 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 Subjective Constitutional: Reports: fever Gastrointestinal/Abdominal: Reports: abdominal pain - better Allergies: Coded Allergies: NSAIDS (NON-STEROIDAL ANTI-INFLAMMA (Verified Allergy, Unknown, 10/19/18) Objective Last 24 Hour Vital Signs Date Time Temp Pulse Resp B/P (MAP) Pulse Ox O2 Delivery O2 Flow Rate FiO2 10/22/18 12:00 101.1 19 110/72 (85) 97 10/22/18 09:00 Room Air 10/22/18 08:00 99.2 142/69 (93) 10/22/18 04:39 98.9 77 17 130/84 (99) 98 10/22/18 04:00 16 10/22/18 00:06 98.2 78 18 129/82 (98) 97 10/22/18 00:00 16 10/21/18 21:00 Room Air 10/21/18 20:55 98.4 82 19 124/88 (100) 97 10/21/18 20:00 16 10/21/18 16:00 99.3 82 16 125/78 (94) 100 10/21/18 15:26 Room Air 10/21/18 15:00 16 10/21/18 14:30 16 10/21/18 14:00 16 10/21/18 13:45 16 10/21/18 13:30 16 Intake and Output 10/21/18 10/22/18 19:00 07:00 Intake Total 1440 ml 840 ml Output Total 950 ml Balance 490 ml 840 ml Intake Oral 120 ml 360 ml IV Total 1320 ml 480 ml Output Urine Total 950 ml # Voids 2 Height (Feet): 5 Height (Inches): 9.00 Weight (Pounds): 170 General Appearance: no apparent distress, alert Cardiovascular: normal rate Respiratory/Chest: lungs clear Miguel A Meredith MD Oct 22, 2018 13:28
--- NOTE | 2018-10-22 13:49 | General Surgery Progress Note ---
General Surgery-Progress Note Subjective Procedure Performed subtotal hysterectomy; lysis of adhesions Symptoms: improved, tolerating diet, passing flatus Additional Comments still with pain but improving. febrile. Objective Last 24 Hour Vital Signs Date Time Temp Pulse Resp B/P (MAP) Pulse Ox O2 Delivery O2 Flow Rate FiO2 10/22/18 12:00 101.1 19 110/72 (85) 97 10/22/18 09:00 Room Air 10/22/18 08:00 99.2 142/69 (93) 10/22/18 04:39 98.9 77 17 130/84 (99) 98 10/22/18 04:00 16 10/22/18 00:06 98.2 78 18 129/82 (98) 97 10/22/18 00:00 16 10/21/18 21:00 Room Air 10/21/18 20:55 98.4 82 19 124/88 (100) 97 10/21/18 20:00 16 10/21/18 16:00 99.3 82 16 125/78 (94) 100 10/21/18 15:26 Room Air 10/21/18 15:00 16 10/21/18 14:30 16 10/21/18 14:00 16 I&O Intake and Output 10/21/18 10/22/18 19:00 07:00 Intake Total 1440 ml 840 ml Output Total 950 ml Balance 490 ml 840 ml Intake Oral 120 ml 360 ml IV Total 1320 ml 480 ml Output Urine Total 950 ml # Voids 2 Dressing: dry Wound: clean Drains: none Cardiovascular: RSR Respiratory: clear Abdomen: soft, flat, tenderness, present bowel sounds, other - incision c/d/i Extremities: no tenderness, no cyanosis Assessment Post-op Diagnosis pelvic pain, symptomatic myomata Plan Problems: (1) Fibroids Assessment & Plan: s/p ex lap, subtotal hysterectomy, lysis of adhesions recovering labs noted abd soft, non distended, tender, dressings c/d/i febrile today. will monitor. likely atelectasis -diet as tolerated -ambulate and out of bed -Rx as written -incentive spirometry -AM labs will follow with recs. thank you Kaushik Castro Oct 22, 2018 13:49
[2018-10-22 16:00] VITALS: BP 125/81
[2018-10-22 20:00] VITALS: BP 115/68
[2018-10-23] VITALS: BP 120/70
[2018-10-23 04:00] VITALS: BP 114/72
[2018-10-23] MEDS: Potassium Chloride 30 MEQ in Dextrose 5%/Lactated Ringer's 1,000 ML IV SCH (06:10)
[2018-10-23 06:25] LABS: APPEARANCE,URINE CLOUDY; BILIRUBIN, URINE 1+ (NEGATIVE); COLOR,URINE BROWN; GLUCOSE, URINE (UA) NEGATIVE (NEGATIVE); KETONES,URINE NEGATIVE (NEGATIVE); LEUKOCYTE ESTERASE ,URINE 2+ (NEGATIVE); NITRITE,URINE POSITIVE (NEGATIVE); PH,URINE 7 (4.5-8.0); PROTEIN,URINE 1+ (NEGATIVE); UROBILINOGEN,URINE 8 MG/DL (0.0-1.0)
[2018-10-23 07:32] LABS: HEMATOCRIT 31.1 % (37.0-47.0); HEMOGLOBIN 9.5 G/DL (12.0-16.0); MEAN CORPUSCULAR VOLUME 68 FL (80-99); PLATELET COUNT 46 K/UL (150-450); RED BLOOD COUNT 4.59 M/UL (4.20-5.40); RED CELL DISTRIBUTION WIDTH 22.6 % (11.6-14.8); WHITE BLOOD COUNT 7.4 K/UL (4.8-10.8)
[2018-10-23 07:41] LABS: ANION GAP 7 mmol/L (5-15); BLOOD UREA NITROGEN 7 mg/dL (7-18); CALCIUM 8.8 MG/DL (8.5-10.1); CARBON DIOXIDE 27 MMOL/L (21-32); CHLORIDE 107 MMOL/L (98-107); CREATININE 0.8 MG/DL (0.55-1.30); POTASSIUM 3.7 MMOL/L (3.5-5.1); SODIUM 141 MMOL/L (136-145)
[2018-10-23 08:26] VITALS: BP 134/86
--- NOTE | 2018-10-23 09:13 | General Progress Note ---
Assessment/Plan Assessment/Plan 1. Severe anemia, improved 2. Uterine leiomyomata with massively enlarged uterus. 3. Recurrent bleeding. 4. History of morbid obesity with gastric bypass surgery. T normal pain controlled on oral meds UA w 5-10 WBC, leuk esterase 2+ e coli S all but ampicillin can dc on keflex if ok w Dr Sommer thanks Subjective Constitutional: Reports: no symptoms; Denies: chills, diaphoresis, fever, malaise, weakness, other Genitourinary: Denies: burning, frequency Allergies: Coded Allergies: NSAIDS (NON-STEROIDAL ANTI-INFLAMMA (Verified Allergy, Unknown, 10/19/18) Objective Last 24 Hour Vital Signs Date Time Temp Pulse Resp B/P (MAP) Pulse Ox O2 Delivery O2 Flow Rate FiO2 10/23/18 08:26 98.7 87 18 134/86 (102) 100 10/23/18 04:00 98.1 73 19 114/72 (86) 98 10/23/18 00:00 98.4 75 18 120/70 (87) 98 10/22/18 21:00 Room Air 10/22/18 20:00 98.6 80 19 115/68 (84) 100 10/22/18 16:00 99.3 16 125/81 (96) 98 10/22/18 12:00 101.1 19 110/72 (85) 97 Intake and Output 10/22/18 10/23/18 18:59 06:59 Intake Total 1160 ml 1200 ml Balance 1160 ml 1200 ml IV Total 360 ml 1200 ml Other 800 ml # Voids 3 2 Laboratory Tests 10/23/18 07:18: White Blood Count 7.4, Red Blood Count 4.59, Hemoglobin 9.5L, Hematocrit 31.1L, Mean Corpuscular Volume 68L, Mean Corpuscular Hemoglobin 20.7L, Mean Corpuscular Hemoglobin Concent 30.5L, Red Cell Distribution Width 22.6H, Platelet Count 46L, Mean Platelet Volume 7.7, Neutrophils (%) (Auto) , Lymphocytes (%) (Auto) , Monocytes (%) (Auto) , Eosinophils (%) (Auto) , Basophils (%) (Auto) , Differential Total Cells Counted 100, Neutrophils % ( Manual) 70, Lymphocytes % (Manual) 20, Monocytes % (Manual) 5, Eosinophils % ( Manual) 5H, Basophils % (Manual) 0, Band Neutrophils 0, Platelet Estimate DecreasedL, Platelet Morphology Normal, Hypochromasia 3+, Anisocytosis 3+, Microcytosis 2+, Sodium Level 141, Potassium Level 3.7, Chloride Level 107, Carbon Dioxide Level 27, Anion Gap 7, Blood Urea Nitrogen 7, Creatinine 0.8, Estimat Glomerular Filtration Rate > 60, Glucose Level 114H, Calcium Level 8.8 Height (Feet): 5 Height (Inches): 9.00 Weight (Pounds): 170 General Appearance: no apparent distress Cardiovascular: normal rate Respiratory/Chest: lungs clear Miguel A Meredith MD Oct 23, 2018 09:13
[2018-10-23] MEDS: Docusate 100mg cap ORAL SCH (09:28)
[2018-10-23 11:44] LABS: HEMATOCRIT 30.6 % (37.0-47.0); HEMOGLOBIN 9.1 G/DL (12.0-16.0); MEAN CORPUSCULAR VOLUME 68 FL (80-99); PLATELET COUNT 53 K/UL (150-450); RED BLOOD COUNT 4.48 M/UL (4.20-5.40); RED CELL DISTRIBUTION WIDTH 22.8 % (11.6-14.8)
--- NOTE | 2018-10-23 11:47 | General Surgery Progress Note ---
General Surgery-Progress Note Subjective Procedure Performed subtotal hysterectomy; lysis of adhesions Additional Comments much better. no n/v/f/c. tolerating diet. pain improved. afebrile. Objective Last 24 Hour Vital Signs Date Time Temp Pulse Resp B/P (MAP) Pulse Ox O2 Delivery O2 Flow Rate FiO2 10/23/18 09:00 Room Air 10/23/18 08:26 98.7 87 18 134/86 (102) 100 10/23/18 04:00 98.1 73 19 114/72 (86) 98 10/23/18 00:00 98.4 75 18 120/70 (87) 98 10/22/18 21:00 Room Air 10/22/18 20:00 98.6 80 19 115/68 (84) 100 10/22/18 16:00 99.3 16 125/81 (96) 98 10/22/18 12:00 101.1 19 110/72 (85) 97 I&O Intake and Output 10/22/18 10/23/18 18:59 06:59 Intake Total 1160 ml 1200 ml Balance 1160 ml 1200 ml IV Total 360 ml 1200 ml Other 800 ml # Voids 3 2 Dressing: dry Wound: clean, dry, intact Drains: none Cardiovascular: RSR Respiratory: clear Abdomen: soft, flat, non-tender, present bowel sounds Extremities: no tenderness, no cyanosis Laboratory Tests Test 10/23/18 07:18 10/23/18 11:30 White Blood Count 7.4 K/UL (4.8-10.8) Pending Red Blood Count 4.59 M/UL (4.20-5.40) Pending Hemoglobin 9.5 G/DL (12.0-16.0) L Pending Hematocrit 31.1 % (37.0-47.0) L Pending Mean Corpuscular Volume 68 FL (80-99) L Pending Mean Corpuscular Hemoglobin 20.7 PG (27.0-31.0) L Pending Mean Corpuscular Hemoglobin Concent 30.5 G/DL (32.0-36.0) L Pending Red Cell Distribution Width 22.6 % (11.6-14.8) H Pending Platelet Count 46 K/UL (150-450) L Pending Mean Platelet Volume 7.7 FL (6.5-10.1) Pending Neutrophils (%) (Auto) % (45.0-75.0) Pending Lymphocytes (%) (Auto) % (20.0-45.0) Pending Monocytes (%) (Auto) % (1.0-10.0) Pending Eosinophils (%) (Auto) % (0.0-3.0) Pending Basophils (%) (Auto) % (0.0-2.0) Pending Differential Total Cells Counted 100 Neutrophils % (Manual) 70 % (45-75) Lymphocytes % (Manual) 20 % (20-45) Monocytes % (Manual) 5 % (1-10) Eosinophils % (Manual) 5 % (0-3) H Basophils % (Manual) 0 % (0-2) Band Neutrophils 0 % (0-8) Platelet Estimate Decreased L Platelet Morphology Normal Hypochromasia 3+ Anisocytosis 3+ Microcytosis 2+ Sodium Level 141 MMOL/L (136-145) Potassium Level 3.7 MMOL/L (3.5-5.1) Chloride Level 107 MMOL/L (98-107) Carbon Dioxide Level 27 MMOL/L (21-32) Anion Gap 7 mmol/L (5-15) Blood Urea Nitrogen 7 mg/dL (7-18) Creatinine 0.8 MG/DL (0.55-1.30) Estimat Glomerular Filtration Rate > 60 mL/min (>60) Glucose Level 114 MG/DL (74-106) H Calcium Level 8.8 MG/DL (8.5-10.1) Assessment Post-op Diagnosis pelvic pain, symptomatic myomata Plan Problems: (1) Fibroids Assessment & Plan: s/p ex lap, subtotal hysterectomy, lysis of adhesions recovering labs noted abd soft, non distended, tender, dressings c/d/i afebrile. -diet as tolerated -ambulate and out of bed -Rx as written -incentive spirometry -d/c home will follow with recs. thank you Kaushik Castro Oct 23, 2018 11:47
[2018-10-23 11:54] VITALS: BP 114/74
--- NOTE | 2018-10-23 13:43 | Discharge Summary ---
Discharge Summary Hospital Course Date of Admission Oct 19, 2018 at 13:27 Date of Discharge october 23 Admitting Diagnosis anemia, symptomatic myomata HPI Angie Shah is a 43 year old female who was admitted on Oct 19, 2018 at 13:27 for Anemia,Fibroid,Leiomyoma Of The Uterus Consultations sydnie swan md [im], kathrin gonsalves md [gs] Procedures lysis of adhesions, sub total abdominal hysterectomy Hospital Course transfused 4 units PRBC, stable post op course. Discharge Medications Medication Profile: No Active Prescriptions or Reported Meds Discharge Condition Upon Discharge: improving Discharge Disposition Patient was discharged to Home (01) Discharge Diagnoses: (1) Fibroids (2) Anemia Kendrick Sommer MD Oct 23, 2018 13:43
--- NOTE | 2018-10-23 13:44 | General Surgery Progress Note ---
General Surgery-Progress Note Subjective Procedure Performed sub total hysterectomy, lysis of adhesions Symptoms: improved, tolerating diet, voiding well, passing flatus, BM Objective Last 24 Hour Vital Signs Date Time Temp Pulse Resp B/P (MAP) Pulse Ox O2 Delivery O2 Flow Rate FiO2 10/23/18 11:54 98.6 85 18 114/74 (87) 99 10/23/18 09:00 Room Air 10/23/18 08:26 98.7 87 18 134/86 (102) 100 10/23/18 04:00 98.1 73 19 114/72 (86) 98 10/23/18 00:00 98.4 75 18 120/70 (87) 98 10/22/18 21:00 Room Air 10/22/18 20:00 98.6 80 19 115/68 (84) 100 10/22/18 16:00 99.3 16 125/81 (96) 98 I&O Intake and Output 10/22/18 10/23/18 18:59 06:59 Intake Total 1160 ml 1200 ml Balance 1160 ml 1200 ml IV Total 360 ml 1200 ml Other 800 ml # Voids 3 2 Dressing: dry Wound: clean Drains: none Cardiovascular: RSR Respiratory: clear Abdomen: soft, flat, scaphoid, non-tender, present bowel sounds Laboratory Tests Test 10/23/18 07:18 10/23/18 11:30 White Blood Count 7.4 K/UL (4.8-10.8) 8.0 K/UL (4.8-10.8) Red Blood Count 4.59 M/UL (4.20-5.40) 4.48 M/UL (4.20-5.40) Hemoglobin 9.5 G/DL (12.0-16.0) L 9.1 G/DL (12.0-16.0) L Hematocrit 31.1 % (37.0-47.0) L 30.6 % (37.0-47.0) L Mean Corpuscular Volume 68 FL (80-99) L 68 FL (80-99) L Mean Corpuscular Hemoglobin 20.7 PG (27.0-31.0) L 20.4 PG (27.0-31.0) L Mean Corpuscular Hemoglobin Concent 30.5 G/DL (32.0-36.0) L 29.8 G/DL (32.0-36.0) L Red Cell Distribution Width 22.6 % (11.6-14.8) H 22.8 % (11.6-14.8) H Platelet Count 46 K/UL (150-450) L 53 K/UL (150-450) L Mean Platelet Volume 7.7 FL (6.5-10.1) 9.5 FL (6.5-10.1) Neutrophils (%) (Auto) % (45.0-75.0) % (45.0-75.0) Lymphocytes (%) (Auto) % (20.0-45.0) % (20.0-45.0) Monocytes (%) (Auto) % (1.0-10.0) % (1.0-10.0) Eosinophils (%) (Auto) % (0.0-3.0) % (0.0-3.0) Basophils (%) (Auto) % (0.0-2.0) % (0.0-2.0) Differential Total Cells Counted 100 100 Neutrophils % (Manual) 70 % (45-75) 86 % (45-75) H Lymphocytes % (Manual) 20 % (20-45) 11 % (20-45) L Monocytes % (Manual) 5 % (1-10) 2 % (1-10) Eosinophils % (Manual) 5 % (0-3) H 1 % (0-3) Basophils % (Manual) 0 % (0-2) 0 % (0-2) Band Neutrophils 0 % (0-8) 0 % (0-8) Platelet Estimate Decreased L Decreased L Platelet Morphology Normal Normal Hypochromasia 3+ 3+ Anisocytosis 3+ 3+ Microcytosis 2+ 2+ Sodium Level 141 MMOL/L (136-145) Potassium Level 3.7 MMOL/L (3.5-5.1) Chloride Level 107 MMOL/L (98-107) Carbon Dioxide Level 27 MMOL/L (21-32) Anion Gap 7 mmol/L (5-15) Blood Urea Nitrogen 7 mg/dL (7-18) Creatinine 0.8 MG/DL (0.55-1.30) Estimat Glomerular Filtration Rate > 60 mL/min (>60) Glucose Level 114 MG/DL (74-106) H Calcium Level 8.8 MG/DL (8.5-10.1) Ovalocytes Occasional Additional Comments no evidence of sepsis, infection Assessment Post-op Diagnosis same, improved, plus umbilical hernia repair needed Plan Additional Comments discharge home, percocet and keflex Kendrick Sommer MD Oct 23, 2018 13:44
--- NOTE | 2018-10-26 15:30 | Operative Note - Dictated ---
DATE OF OPERATION: 10/20/2018 SURGEON: Kendrick Velázquez M.D. MATH INSTRUCTOR: Albino Javed M.D. ETL APPLICATION DEVELOPER: Kaushik Castro M.D. ANESTHESIOLOGIST: Madhavi Cai CRNA (general endotracheal). PREOPERATIVE DIAGNOSES: Pelvic pain, menorrhagia, and symptomatic leiomyoma of the uterus. POSTOPERATIVE DIAGNOSES: Pelvic pain, menorrhagia, symptomatic leiomyoma of the uterus, and extensive small bowel adhesions to the uterus. PROCEDURE: Subtotal abdominal hysterectomy and lysis of adhesions by Dr. Castro. INDICATIONS AND FINDINGS: This is a 43-year-old female with a history of having had several blood transfusions for menorrhagia has presented the day prior to surgery with a hematocrit of 22% and was given 4 units of packed red blood cells to raise her hematocrit to 29%. She is being followed along with Internal Medicine for her medical problems. At the time of laparotomy, the patient's bowel adhesions were noted and dissected down by Dr. Castro in a separate note. When the specimen was free of adhesions, the hysterectomy was performed by myself and Dr. Javed. The findings were an enlarged irregular uterus, status post tubal ligation and the extensive scar tissue on the patient's right adnexa. There was no evidence of malignancy, endometriosis, or pelvic inflammatory disease. The patient had a umbilical hernia, which will require a repair at a later time. The appendix was not visualized, but the small bowel was grossly normal. It looked like, to the general surgeon, there was a good possibility of the patient requiring a cholecystectomy from her imaging, however, this was not performed at the time of this procedure. There was no evidence of destruction of the genitourinary tract or the gastrointestinal tract. Blood loss 100 mL. Due to the scarring on the right adnexa, a CT urogram will be performed. Urine was clear at the end of the case. DESCRIPTION OF PROCEDURE: Under general endotracheal anesthesia, the patient was prepped and draped and placed in dorsal position. A midline incision was used to enter the abdominal cavity. The patient's specimen was inspected and the extensive adhesions, which had been predicted given the patient's prior history, were taken down without incident by Dr. Castro. When the specimen was clear, the hysterectomy was begun by myself and Dr. Javed. The patient requested that we leave her cervix as well as her ovaries. The patient's left side was round ligament was divided, sutured with #1 Vicryl, which was used throughout this procedure, and the adnexal space was taken down. The patient's ovarian pedicle was clamped, cut, and doubly ligated and cut free of the specimen. The serosa was taken down with the bladder flap anteriorly and the peritoneal reflection posteriorly in order to skeletonize the uterine arteries. The uterine artery was doubly clamped, cut, and doubly ligated. This procedure was repeated on the patient's right side, however, extensive scarring required more of a dissection of the adnexa. The patient's ureter was felt to be well away from the line of dissection. However, a CT urogram will be performed on the first postoperative day for confirmation. The patient's urine was clear at the end of the procedure. Following the ligation of the patient's uterine arteries on the right side, the specimen, a corpus of the uterus was cut free and the cervical base was fulgurated in the cavity to prevent further bleeding. The patient's cervix was oversewn with interrupted sutures of #1 Vicryl. No bleeding points were seen after extensive irrigation and inspection of the pedicles. The abdomen was then closed. The fascia closed with a running #0 Prolene suture. The skin closed with skin clips. The patient left the operating room in stable condition. Kendrick Velázquez M.D. DR: BROWN JOB#: [id number] CC:
== END 2018-10-23 11:40 | disposition home or self-care (01) | DRG 743 ==
LOC: EMR 13:25 → 3E 13:27 → EDBEDREQ 13:39
PROC: 30233N1 Transfusion of Nonautologous Red Blood Cells into Peripheral Vein, Percutaneous Approach (ICD-10-PCS; 2018-10-19)
PROC: 0UT90ZL Resection of Uterus, Supracervical, Open Approach (ICD-10-PCS; principal; 2018-10-20 12:00)
PROC: 0DNW0ZZ Release Peritoneum, Open Approach (ICD-10-PCS; principal; 2018-10-20 12:00)
DX: D25.9 Leiomyoma of uterus, unspecified (principal); D50.0 Iron deficiency anemia secondary to blood loss (chronic); Z88.6 Allergy status to analgesic agent; N92.0 Excessive and frequent menstruation with regular cycle; N73.6 Female pelvic peritoneal adhesions (postinfective); K42.9 Umbilical hernia without obstruction or gangrene; Z98.84 Bariatric surgery status; G89.18 Other acute postprocedural pain
CPT/HCPCS: 36415; 74178; 80048; 80053; 81003; 81025; 83690; 85007; 85025; 85610; 85730; 86850; 86900; 86901; 86920; 87040; 87086; 87181; 94003; 94150; 96361; 96374; 99284; 99285; J2405; J2710; J2765

== ENCOUNTER 2018-10-26 16:09 | Inpatient (IN) | payer MEDICARE, OTHER ==
[~2018-10-26] VITALS: Ht 154.9 cm; Wt 74.8 kg
[2018-10-26 16:10] VITALS: BP 139/79
[2018-10-26] MEDS ORDERED: PERCOCET 7.5-31 EACH ORAL (16:17)
[2018-10-26] MEDS ORDERED: ZOFRAN ODT8 MG ORAL (16:17)
[2018-10-26] MEDS ORDERED: HYDROmorphone 1mg/ml Carpuject IVP ONE (16:30)
[2018-10-26] MEDS ORDERED: DiphenhydrAMINE 50mg/ml Inj IVP ONE (16:30)
[2018-10-26 16:51] LABS: BASOPHILS % (AUTO) 1.4 % (0.0-2.0); EOSINOPHILS % (AUTO) 4.1 % (0.0-3.0); HEMATOCRIT 37.9 % (37.0-47.0); HEMOGLOBIN 11.2 G/DL (12.0-16.0); LYMPHOCYTES % (AUTO) 25.3 % (20.0-45.0); MEAN CORPUSCULAR VOLUME 70 FL (80-99); MONOCYTES % (AUTO) 5.9 % (1.0-10.0); NEUTROPHILS % (AUTO) 63.3 % (45.0-75.0); PLATELET COUNT 156 K/UL (150-450); RED BLOOD COUNT 5.43 M/UL (4.20-5.40); RED CELL DISTRIBUTION WIDTH 24.4 % (11.6-14.8); WHITE BLOOD COUNT 7.8 K/UL (4.8-10.8)
[2018-10-26 17:01] LABS: ANION GAP 13 mmol/L (5-15); BLOOD UREA NITROGEN 8 mg/dL (7-18); CALCIUM 9.5 MG/DL (8.5-10.1); CARBON DIOXIDE 24 MMOL/L (21-32); CHLORIDE 101 MMOL/L (98-107); CREATININE 0.8 MG/DL (0.55-1.30); POTASSIUM 4.1 MMOL/L (3.5-5.1); SODIUM 138 MMOL/L (136-145)
--- NOTE | 2018-10-26 17:03 | GI Initial Consult Note ---
History of Present Illness General Date patient seen: Oct 26, 2018 Time patient seen: 16:51 Reason for Hospitalization: General Complaint Referring physician: SONNY Reason for Consultation: ABDOMINAL DISTENTION Present Illness HPI 43 F with recent history of subtotal hysterectomy; lysis of adhesions; additional hx of prior tubal ligation and large uterus and prior ventral hernia repairs. Patient presents today with abdominal pain and distention. The patient was seen in the ED, awake A&Ox4 NAD. Patient reported unable to tolerate any PO. Her abdomen is distended, tender. Noted prior surgical dressing from recent procedure. The patient states she is not passing any flatus, no reported BM. She has been taking Percocet for her pain at home. Labs currently pending. CT AP pending. Patient has no history of endoscopy / colonoscopy. Home Meds Reported Medications Oxycodone Hcl/Acetaminophen 7.5-325 Mg (PERCOCET 7.5-325 MG TABLET) 1 Each Tablet, 1 TAB ORAL Q6H PRN for For Pain, #30 TAB 0 Refills 10/26/18 Ondansetron Odt* (ZOFRAN ODT*) 8 Mg Tab.rapdis, 8 MG ORAL Q6H PRN for Nausea & Vomiting, #30 TAB 10/26/18 Med list reviewed/reconciled: Yes Allergies: Coded Allergies: NSAIDS (NON-STEROIDAL ANTI-INFLAMMA (Verified Allergy, Unknown, 10/19/18) Patient History History Provided By: Patient, Medical Record [facility] Narrative (1) Anemia (2) Fibroids (3) Anemia Social History: Denies: smoking, alcohol use, drug use, other Review of Systems All Other Systems: negative except mentioned in HPI Physical Exam Vital Signs Date Time Temp Pulse Resp B/P (MAP) Pulse Ox O2 Delivery O2 Flow Rate FiO2 10/26/18 16:10 98.6 65 20 139/79 100 Room Air Sp02 EP Interpretation: reviewed, normal Labs Laboratory Tests Test 10/26/18 16:35 White Blood Count Pending Red Blood Count Pending Hemoglobin Pending Hematocrit Pending Mean Corpuscular Volume Pending Mean Corpuscular Hemoglobin Pending Mean Corpuscular Hemoglobin Concent Pending Red Cell Distribution Width Pending Platelet Count Pending Mean Platelet Volume Pending Neutrophils (%) (Auto) Pending Lymphocytes (%) (Auto) Pending Monocytes (%) (Auto) Pending Eosinophils (%) (Auto) Pending Basophils (%) (Auto) Pending Sodium Level Pending Potassium Level Pending Chloride Level Pending Carbon Dioxide Level Pending Blood Urea Nitrogen Pending Creatinine Pending Estimat Glomerular Filtration Rate Pending Glucose Level Pending Calcium Level Pending Total Bilirubin Pending Aspartate Amino Transf (AST/SGOT) Pending Alanine Aminotransferase (ALT/SGPT) Pending Alkaline Phosphatase Pending Total Protein Pending Albumin Pending Globulin Pending Lipase Pending General Appearance: well appearing, no apparent distress, alert Head: normocephalic EENT: PERRL/EOMI, normal ENT inspection Neck: supple Respiratory: normal breath sounds, no respiratory distress Cardiovascular: normal rate Gastrointestinal: distended, tenderness, other - tympanic Rectal: deferred Genitourinary: no CVA tenderness Musculoskeletal: normal inspection, back normal Neurologic: normal inspection, alert, oriented x3, responsive Psychiatric: normal inspection, judgement/insight normal, memory normal Skin: normal inspection, normal color, no rash, warm/dry, palpation normal, well hydrated Lymphatic: normal inspection, no adenopathy Current Medications Current Medications Medications (Trade) Dose Ordered Sig/Kyleigh Route PRN Reason Start Time Stop Time Status Last Admin Dose Admin Barium Sulfate (Readi-Cat 2) 450 ml NOW PRN ORAL Radiology Procedure 10/26/18 16:30 10/28/18 16:27 Sodium Chloride 1,000 ml @ 999 mls/hr Q1H1M ONCE IV 10/26/18 16:24 10/26/18 17:24 10/26/18 16:38 GI: Plan Problems: (1) History of hysterectomy (2) Abdominal distention (3) Therapeutic opioid-induced constipation (OIC) (4) Anemia Plan maintain NPO + IVFs fu CT AP start relistor QOD for OIC avoid opioids turn q2 hours simethicone prn anemia work up fu labs will follow with additional recs post imaging Discussed with Dr. Burroughs. Thank you for this patient referral, we will follow. The patient was seen and examined at bedside and all new and available data was reviewed in the patients chart. I agree with the above findings, impression and plan. (Patient seen earlier today. Signature stamp does not reflect patient encounter time.). - MD [facility] Oct 26, 2018 17:03
[2018-10-26 17:05] LABS: ALANINE AMINOTRANSFERASE 16 U/L (12-78); ALBUMIN 3.8 G/DL (3.4-5.0); ALBUMIN/GLOBULIN RATIO 0.7 (1.0-2.7); ALKALINE PHOSPHATASE 70 U/L (46-116); ASPARTATE AMINO TRANSFERASE 30 U/L (15-37); BILIRUBIN,TOTAL 0.6 MG/DL (0.2-1.0)
[2018-10-26 18:10] VITALS: BP 139/79
[2018-10-26 18:52] VITALS: BP 115/71
[2018-10-26] MEDS ORDERED: HYDROmorphone 1mg/ml Carpuject IVP PRN (19:00)
--- NOTE | 2018-10-26 19:53 | Emergency Room Report ---
History of Present Illness General Chief Complaint: General Complaint Source: Patient, Medical Record Present Illness HPI Patient presents with complaints of diffuse abdominal pain Patient had recent surgery with intervention for some adhesions that had formed Patient reports that she has passed some gas however feels more bloated that when she left Denies any chest pain She has decreased oral intake secondary to nausea Denies any diarrhea Denies any fevers or chills Abdominal pain is 8 out of 10 diffuse Denies any change with position or exertion Allergies: Coded Allergies: NSAIDS (NON-STEROIDAL ANTI-INFLAMMA (Verified Allergy, Unknown, 10/19/18) Patient History Past Medical History: see triage record Pertinent Family History: none Now: No Reviewed Nursing Documentation: PMH: Agreed; PSxH: Agreed Nursing Documentation-PMH Past Medical History: No History, Except For Hx Cardiac Problems: No Hx Hypertension: No Hx Pacemaker: No Hx Asthma: No Hx COPD: No Hx Gastrointestinal Problems: Yes - gastric bipass 2010, uterine fibroids, hysterectomy Hx Neurological Problems: No Hx Cerebrovascular Accident: No Hx Transient Ischemic Attacks: No Hx Dementia: No Hx Alzheimer's Disease: No Hx Parkinson's Disease: No Hx Meningitis: No Hx Encephalitis: No Hx Seizures: No Hx Epilepsy: No Hx Multiple Sclerosis: No Hx Cerebral Palsy: No Hx Amyotrophic Lat Sclerosis: No Hx Guillian-[place] Syndrome: No Hx Paralysis: No Hx Peripheral Neuropathy: No Hx Spinal Cord Injury: No Hx Head Trauma: No Hx Traumatic Brain Injury: No Hx Memory Loss: No Hx Concentration Difficulty: No Hx Speech Problem: No Hx Tremors: No Hx Vertigo: No Hx Dizziness: No Hx Syncope: No Hx Headaches: No Hx Aphasia: No Hx Dysphasia: No Hx Numbness: No Hx Weakness: No Hx Fatigue: No Hx Neurologic Surgery: No Hx Brain Shunt: No Review of Systems All Other Systems: negative except mentioned in HPI Physical Exam Vital Signs Date Time Temp Pulse Resp B/P (MAP) Pulse Ox O2 Delivery O2 Flow Rate FiO2 10/26/18 16:10 98.6 65 20 139/79 100 Room Air 10/26/18 16:49 99 Sp02 EP Interpretation: reviewed, normal General Appearance: mild distress - Mildly uncomfortable Head: normocephalic, atraumatic Eyes: bilateral eye PERRL, bilateral eye EOMI ENT: hearing grossly normal, normal pharynx, TMs + canals normal, uvula midline Neck: full range of motion, supple, no meningismus, no bony tend Respiratory: lungs clear, normal breath sounds, no rhonchi, no respiratory distress, no retraction, no accessory muscle use Cardiovascular #1: normal peripheral pulses, regular rate, rhythm, no edema, no gallop, no JVD, no murmur Gastrointestinal: no mass, no organomegaly, no guarding, no pulsatile mass, no rebound, other - Patient is mildly distended decreased bowel sounds are appreciated, Genitourinary: no CVA tenderness Musculoskeletal: normal inspection Neurologic: oriented x3, responsive, director of operations home health III-XII nml as tested, motor strength/ tone normal, sensory intact Psychiatric: mood/affect normal Skin: normal color, no rash, warm/dry, palpation normal Lymphatic: normal inspection, no adenopathy Medical Decision Making Diagnostic Impression: Primary Impression: Abdominal distention Additional Impression: Abdominal pain ER Course Multiple differentials including but not limited to ileus, bowel obstruction perforation are considered Patient has oral contrast initiated Baseline blood work are appropriate CT imaging reveals persistent and some worsening ileus Patient requiring admission for further inpatient care GI and surgery specialty consultations made, Labs Test 10/26/18 16:35 10/27/18 05:25 10/28/18 06:25 White Blood Count 7.8 K/UL (4.8-10.8) 7.4 K/UL (4.8-10.8) 11.0 K/UL (4.8-10.8) Red Blood Count 5.43 M/UL (4.20-5.40) 3.83 M/UL (4.20-5.40) 4.64 M/UL (4.20-5.40) Hemoglobin 11.2 G/DL (12.0-16.0) 8.1 G/DL (12.0-16.0) 9.9 G/DL (12.0-16.0) Hematocrit 37.9 % (37.0-47.0) 26.9 % (37.0-47.0) 32.8 % (37.0-47.0) Mean Corpuscular Volume 70 FL (80-99) 70 FL (80-99) 71 FL (80-99) Mean Corpuscular Hemoglobin 20.6 PG (27.0-31.0) 21.1 PG (27.0-31.0) 21.3 PG (27.0-31.0) Mean Corpuscular Hemoglobin Concent 29.6 G/DL (32.0-36.0) 30.1 G/DL (32.0-36.0) 30.2 G/DL (32.0-36.0) Red Cell Distribution Width 24.4 % (11.6-14.8) 24.5 % (11.6-14.8) 24.4 % (11.6-14.8) Platelet Count 156 K/UL (150-450) 144 K/UL (150-450) 315 K/UL (150-450) Mean Platelet Volume 6.8 FL (6.5-10.1) 8.1 FL (6.5-10.1) 7.6 FL (6.5-10.1) Neutrophils (%) (Auto) 63.3 % (45.0-75.0) 42.7 % (45.0-75.0) 71.1 % (45.0-75.0) Lymphocytes (%) (Auto) 25.3 % (20.0-45.0) 40.0 % (20.0-45.0) 16.9 % (20.0-45.0) Monocytes (%) (Auto) 5.9 % (1.0-10.0) 7.4 % (1.0-10.0) 6.0 % (1.0-10.0) Eosinophils (%) (Auto) 4.1 % (0.0-3.0) 8.5 % (0.0-3.0) 5.3 % (0.0-3.0) Basophils (%) (Auto) 1.4 % (0.0-2.0) 1.3 % (0.0-2.0) 0.8 % (0.0-2.0) Sodium Level 138 MMOL/L (136-145) 140 MMOL/L (136-145) Potassium Level 4.1 MMOL/L (3.5-5.1) 3.4 MMOL/L (3.5-5.1) Chloride Level 101 MMOL/L (98-107) 106 MMOL/L (98-107) Carbon Dioxide Level 24 MMOL/L (21-32) 28 MMOL/L (21-32) Anion Gap 13 mmol/L (5-15) 6 mmol/L (5-15) Blood Urea Nitrogen 8 mg/dL (7-18) 7 mg/dL (7-18) Creatinine 0.8 MG/DL (0.55-1.30) 0.8 MG/DL (0.55-1.30) Estimat Glomerular Filtration Rate > 60 mL/min (>60) > 60 mL/min (>60) Glucose Level 103 MG/DL (74-106) 107 MG/DL (74-106) Calcium Level 9.5 MG/DL (8.5-10.1) 8.3 MG/DL (8.5-10.1) Total Bilirubin 0.6 MG/DL (0.2-1.0) 0.4 MG/DL (0.2-1.0) Aspartate Amino Transf (AST/SGOT) 30 U/L (15-37) 18 U/L (15-37) Alanine Aminotransferase (ALT/SGPT) 16 U/L (12-78) 13 U/L (12-78) Alkaline Phosphatase 70 U/L (46-116) 49 U/L (46-116) Total Protein 8.9 G/DL (6.4-8.2) 6.1 G/DL (6.4-8.2) Albumin 3.8 G/DL (3.4-5.0) 2.7 G/DL (3.4-5.0) Globulin 5.1 g/dL 3.4 g/dL Albumin/Globulin Ratio 0.7 (1.0-2.7) 0.8 (1.0-2.7) Lipase 214 U/L (73-393) Iron Level 21 ug/dL (50-175) Total Iron Binding Capacity 267 ug/dL (250-450) Percent Iron Saturation 8 % (15-50) Unsaturated Iron Binding 246 ug/dL (112-346) Ferritin 83 NG/ML (8-388) CT/MRI/US Diagnostic Results CT/MRI/US Diagnostic Results : Impression CT abdomen pelvisIMPRESSION: Progressive worsening distention of multiple loops of small bowel probably on the basis of a generalized ileus/enteritis. Partial bowel obstruction is not excluded. Follow-up and clinical correlation are needed. Postsurgical changes associated with relatively recent abdominal surgery which was a supracervical hysterectomy. Mild free fluid within the pelvis. Status post gastric bypass Mild basal atelectasis Hiatal hernia. Evaluation is limited due to the absence of IV contrast material and relatively poor bowel contrast opacification. Last Vital Signs Date Time Temp Pulse Resp B/P (MAP) Pulse Ox O2 Delivery O2 Flow Rate FiO2 10/26/18 18:52 98.7 77 18 115/71 (86) 100 10/26/18 18:34 Room Air 10/26/18 16:49 99 Status: improved Disposition: ADMITTED INPATIENT Condition: Serious Referrals: Kendrick Sommer MD (PCP) Joshua Yusuf DO Oct 26, 2018 19:53
[2018-10-26 20:00] VITALS: BP 116/72
[2018-10-26] MEDS ORDERED: Isovue-300 100ml vial INJ PRN (21:15)
[2018-10-26] MEDS: Potassium Chloride 20 MEQ in Dextrose 5%/Lactated Ringer's 1,000 ML IV SCH (21:18)
[2018-10-27] VITALS: BP 107/64
[2018-10-27 04:00] VITALS: BP 100/63
[2018-10-27] MEDS: Potassium Chloride 20 MEQ in Dextrose 5%/Lactated Ringer's 1,000 ML IV SCH ×4 (04:01→23:49)
[2018-10-27 07:02] LABS: ALANINE AMINOTRANSFERASE 13 U/L (12-78); ALBUMIN 2.7 G/DL (3.4-5.0); ALBUMIN/GLOBULIN RATIO 0.8 (1.0-2.7); ALKALINE PHOSPHATASE 49 U/L (46-116); ANION GAP 6 mmol/L (5-15); ASPARTATE AMINO TRANSFERASE 18 U/L (15-37); BILIRUBIN,TOTAL 0.4 MG/DL (0.2-1.0); BLOOD UREA NITROGEN 7 mg/dL (7-18); CALCIUM 8.3 MG/DL (8.5-10.1); CARBON DIOXIDE 28 MMOL/L (21-32); CHLORIDE 106 MMOL/L (98-107); CREATININE 0.8 MG/DL (0.55-1.30); POTASSIUM 3.4 MMOL/L (3.5-5.1); SODIUM 140 MMOL/L (136-145)
[2018-10-27 07:17] LABS: BASOPHILS % (AUTO) 1.3 % (0.0-2.0); EOSINOPHILS % (AUTO) 8.5 % (0.0-3.0); HEMATOCRIT 26.9 % (37.0-47.0); HEMOGLOBIN 8.1 G/DL (12.0-16.0); MEAN CORPUSCULAR VOLUME 70 FL (80-99); MONOCYTES % (AUTO) 7.4 % (1.0-10.0); NEUTROPHILS % (AUTO) 42.7 % (45.0-75.0); PLATELET COUNT 144 K/UL (150-450); RED BLOOD COUNT 3.83 M/UL (4.20-5.40); RED CELL DISTRIBUTION WIDTH 24.5 % (11.6-14.8); WHITE BLOOD COUNT 7.4 K/UL (4.8-10.8)
[2018-10-27 08:00] VITALS: BP 110/69
[2018-10-27] MEDS ORDERED: Relistor 12mg/0.6ml Vial SUBQ SCH (09:00)
[2018-10-27] MEDS: Miralax 17gm pkt ORAL SCH (09:00)
[2018-10-27] MEDS ORDERED: Iron Sucrose 100 MG in NS 55 ML IV ONE ×2 (10:00→16:00)
[2018-10-27] MEDS: Bisacodyl EC 5mg tab ORAL SCH (10:19)
[2018-10-27] MEDS: Docusate 100mg cap ORAL SCH ×2 (10:19→17:20)
--- NOTE | 2018-10-27 11:02 | Consultation ---
Consult Note Assessment/Plan DATE OF CONSULTATION: 10/27/2018 INTERNAL MEDICINE CONSULTATION HISTORY OF PRESENT ILLNESS: The patient is the 43-year-old woman referred by Dr. Sommer for medical evaluation and management of n/v and abdominal pain after hysterectomy. She had hysterectomy last week and tolerated oral intake at discharge but at home began to have emesis and distension. She did not improve with Zofran ODT and came to ER and was admitted. PAST MEDICAL HISTORY: Include gastric bypass surgery in 2009. She lost 110 pounds. As noted, she had embolization in the past. She has had a section in 2000. She has a seizure disorder, but has had no seizures since 2001, on no medications. She has chronic anemia. S/p hysterectomy ALLERGIES: NSAIDs MEDICATIONS: Percocet REVIEW OF SYSTEMS: Otherwise unremarkable. PHYSICAL EXAMINATION: GENERAL: The patient is alert and responds appropriately. VITAL SIGNS: Show normal findings. HEENT: Head is normocephalic. NECK: No jugular venous distention. CHEST: Clear. CARDIAC: Rhythm is regular. ABDOMEN: Soft and nontender. Not distended or tender. Surgical dressing. The liver and spleen cannot be felt. There is no ascites. EXTREMITIES: No clubbing, cyanosis, or edema. LABORATORY STUDIES: Laboratory were studies were reviewed. IMPRESSIONS: 1. N/V, abd pain and distension, improved 2. Uterine leiomyomata s/p hysterectomy. 3. Anemia 4. History of morbid obesity with gastric bypass surgery. PLAN: The patient is hungry now but advised to wait until CT is done. Will monitor labs and supplement K. Miguel A Meredith M.D. Miguel A Meredith MD Oct 27, 2018 11:02
[2018-10-27 11:25] LABS: % IRON SATURATION 8 % (15-50); IRON 21 ug/dL (50-175); TOTAL IRON BINDING CAPACITY 267 ug/dL (250-450)
[2018-10-27 11:38] LABS: FERRITIN 83 NG/ML (8-388)
[2018-10-27 12:00] VITALS: BP 114/73
--- NOTE | 2018-10-27 12:04 | GI Progress Note ---
Assessment/Plan Problems: (1) Abdominal pain ICD Codes: R10.9 - Unspecified abdominal pain SNOMED: 55991489 (2) Abdominal distention ICD Codes: R14.0 - Abdominal distension (gaseous) SNOMED: 54915727 (3) Encounter for generalized patient complaints ICD Codes: Z00.8 - Encounter for other general examination SNOMED: 382951191 (4) Therapeutic opioid-induced constipation (OIC) ICD Codes: K59.03 - Drug induced constipation; T40.2X5A - Adverse effect of other opioids, initial encounter SNOMED: 964673241115543 (5) Anemia ICD Codes: D64.9 - Anemia, unspecified SNOMED: 305256478 (6) History of hysterectomy ICD Codes: Z90.710 - Acquired absence of both cervix and uterus SNOMED: 491700765, 993250241 Status: unchanged Status Narrative Discussed with Dr. Burroughs. Assessment/Plan history of gastric bypass [address] CT AP today start relistor QOD for OIC avoid opioids turn q2 hours simethicone prn anemia work up fu labs will follow with additional recs post imaging The patient was seen and examined at bedside and all new and available data was reviewed in the patients chart. I agree with the above findings, impression and plan. (Patient seen earlier today. Signature stamp does not reflect patient encounter time.). - Kevin Burroughs MD Subjective Subjective hungry abdominal distention passing small amounts of flatus small soft BM Objective Last 24 Hour Vital Signs Date Time Temp Pulse Resp B/P (MAP) Pulse Ox O2 Delivery O2 Flow Rate FiO2 10/27/18 09:00 Room Air 10/27/18 08:00 98.3 87 18 110/69 (83) 10/27/18 04:00 98.4 71 14 100/63 (75) 99 10/27/18 04:00 98.7 10/27/18 00:00 98.7 79 14 107/64 (78) 100 10/26/18 20:00 98.5 79 16 116/72 (87) 100 10/26/18 19:30 Room Air 10/26/18 18:52 98.7 77 18 115/71 (86) 100 10/26/18 18:34 98.0 85 16 116/95 100 Room Air 10/26/18 18:10 88 20 139/79 100 Room Air 10/26/18 16:49 84 16 Room Air 99 10/26/18 16:11 98.6 69 19 139/94 98 Room Air 10/26/18 16:10 98.6 65 20 139/79 100 Room Air Intake and Output 10/26/18 10/27/18 19:00 07:00 Intake Total 150 ml Balance 150 ml Intake IV Total 150 ml # Voids 1 1 Laboratory Tests Test 10/26/18 16:35 10/27/18 05:25 White Blood Count 7.8 K/UL (4.8-10.8) 7.4 K/UL (4.8-10.8) Red Blood Count 5.43 M/UL (4.20-5.40) H 3.83 M/UL (4.20-5.40) L Hemoglobin 11.2 G/DL (12.0-16.0) L 8.1 G/DL (12.0-16.0) L Hematocrit 37.9 % (37.0-47.0) 26.9 % (37.0-47.0) L Mean Corpuscular Volume 70 FL (80-99) L 70 FL (80-99) L Mean Corpuscular Hemoglobin 20.6 PG (27.0-31.0) L 21.1 PG (27.0-31.0) L Mean Corpuscular Hemoglobin Concent 29.6 G/DL (32.0-36.0) L 30.1 G/DL (32.0-36.0) L Red Cell Distribution Width 24.4 % (11.6-14.8) H 24.5 % (11.6-14.8) H Platelet Count 156 K/UL (150-450) 144 K/UL (150-450) L Mean Platelet Volume 6.8 FL (6.5-10.1) 8.1 FL (6.5-10.1) Neutrophils (%) (Auto) 63.3 % (45.0-75.0) 42.7 % (45.0-75.0) L Lymphocytes (%) (Auto) 25.3 % (20.0-45.0) 40.0 % (20.0-45.0) Monocytes (%) (Auto) 5.9 % (1.0-10.0) 7.4 % (1.0-10.0) Eosinophils (%) (Auto) 4.1 % (0.0-3.0) H 8.5 % (0.0-3.0) H Basophils (%) (Auto) 1.4 % (0.0-2.0) 1.3 % (0.0-2.0) Sodium Level 138 MMOL/L (136-145) 140 MMOL/L (136-145) Potassium Level 4.1 MMOL/L (3.5-5.1) 3.4 MMOL/L (3.5-5.1) L Chloride Level 101 MMOL/L (98-107) 106 MMOL/L (98-107) Carbon Dioxide Level 24 MMOL/L (21-32) 28 MMOL/L (21-32) Anion Gap 13 mmol/L (5-15) 6 mmol/L (5-15) Blood Urea Nitrogen 8 mg/dL (7-18) 7 mg/dL (7-18) Creatinine 0.8 MG/DL (0.55-1.30) 0.8 MG/DL (0.55-1.30) Estimat Glomerular Filtration Rate > 60 mL/min (>60) > 60 mL/min (>60) Glucose Level 103 MG/DL (74-106) 107 MG/DL (74-106) H Calcium Level 9.5 MG/DL (8.5-10.1) 8.3 MG/DL (8.5-10.1) L Total Bilirubin 0.6 MG/DL (0.2-1.0) 0.4 MG/DL (0.2-1.0) Aspartate Amino Transf (AST/SGOT) 30 U/L (15-37) 18 U/L (15-37) Alanine Aminotransferase (ALT/SGPT) 16 U/L (12-78) 13 U/L (12-78) Alkaline Phosphatase 70 U/L (46-116) 49 U/L (46-116) Total Protein 8.9 G/DL (6.4-8.2) H 6.1 G/DL (6.4-8.2) #L Albumin 3.8 G/DL (3.4-5.0) 2.7 G/DL (3.4-5.0) L Globulin 5.1 g/dL 3.4 g/dL Albumin/Globulin Ratio 0.7 (1.0-2.7) L 0.8 (1.0-2.7) L Lipase 214 U/L (73-393) Iron Level 21 ug/dL (50-175) L Total Iron Binding Capacity 267 ug/dL (250-450) Percent Iron Saturation 8 % (15-50) L Unsaturated Iron Binding 246 ug/dL (112-346) Ferritin 83 NG/ML (8-388) Height (Feet): 5 Height (Inches): 1.00 Weight (Pounds): 170 General Appearance: WD/WN, no apparent distress, alert Cardiovascular: normal rate Respiratory/Chest: normal breath sounds, no respiratory distress Abdominal Exam: normal bowel sounds, non tender, soft Extremities: normal range of motion, non-tender Brittany eMdina NP Oct 27, 2018 12:04
--- NOTE | 2018-10-27 15:00 | Diagnostic Imaging Report ---
Indication: Abdominal pain Technique: Continuous helical transaxial imaging of the abdomen and pelvis was obtained from the lung bases to the pubic symphysis. No intravenous contrast was administered. Coronal 2-D reformats were also obtained. Automatic Exposure Control was utilized. Total Dose length Product (DLP): 872.[address] Dose Index Volume (CTDIvol): 16.58 mGy Comparison: 10/21/2018 Findings: There is mild posterior basal atelectasis demonstrated. Small hiatal hernia is present. Gastric timur and sutures in keeping with prior gastric bypass surgery demonstrated. Skin timur still present. Postsurgical changes in the anterior abdominal wall once again noted. Small foci of subcutaneous air from the recent surgery noted. Most of the intra-abdominal air has resorbed and no longer visualized. There is a small amount of free intraperitoneal fluid demonstrated within the pelvis. There are dilated loops of small bowel demonstrated throughout the abdomen. Oral contrast was given and most of the contrast is in the proximal small bowel. Evaluation of small bowel is therefore limited. This appears to be a diffuse process and is likely on the basis of a prolonged ileus. This appears worse than on the prior occasion. Please correlate clinically. Solid organ evaluation is limited without IV contrast. IMPRESSION: Progressive worsening distention of multiple loops of small bowel probably on the basis of a generalized ileus/enteritis. Partial bowel obstruction is not excluded. Follow-up and clinical correlation are needed. Postsurgical changes associated with relatively recent abdominal surgery which was a supracervical hysterectomy. Mild free fluid within the pelvis. Status post gastric bypass Mild basal atelectasis Hiatal hernia. Evaluation is limited due to the absence of IV contrast material and relatively poor bowel contrast opacification. The CT scanner at [facility] is accredited by the [employer] and the scans are performed using dose optimization techniques as appropriate to a performed exam including Automatic Exposure control.
[2018-10-27 16:00] VITALS: BP 104/66
[2018-10-27] MEDS ORDERED: HYDROmorphone 1mg/ml Carpuject SUBQ PRN ×4 (16:15→19:15)
[2018-10-27] MEDS ORDERED: HYDROmorphone 1mg/ml Carpuject IVP PRN (16:45)
--- NOTE | 2018-10-27 19:48 | General Surgery Progress Note ---
General Surgery-Progress Note Subjective Procedure Performed abdominal hysterectomy Symptoms: improved, tolerating diet, passing flatus, BM Objective Last 24 Hour Vital Signs Date Time Temp Pulse Resp B/P (MAP) Pulse Ox O2 Delivery O2 Flow Rate FiO2 10/27/18 17:49 99.0 10/27/18 16:00 98.9 83 19 104/66 (79) 98 10/27/18 12:00 99.0 79 18 114/73 (87) 100 10/27/18 09:00 Room Air 10/27/18 08:00 98.3 87 18 110/69 (83) 10/27/18 04:00 98.4 71 14 100/63 (75) 99 10/27/18 04:00 98.7 10/27/18 00:00 98.7 79 14 107/64 (78) 100 10/26/18 20:00 98.5 79 16 116/72 (87) 100 I&O Intake and Output 10/26/18 10/27/18 19:00 07:00 Intake Total 150 ml Balance 150 ml IV Total 150 ml # Voids 1 1 Dressing: dry Wound: clean Drains: none Cardiovascular: RSR Respiratory: clear Abdomen: soft, flat, scaphoid, tenderness, present bowel sounds Laboratory Tests Test 10/27/18 05:25 White Blood Count 7.4 K/UL (4.8-10.8) Red Blood Count 3.83 M/UL (4.20-5.40) L Hemoglobin 8.1 G/DL (12.0-16.0) L Hematocrit 26.9 % (37.0-47.0) L Mean Corpuscular Volume 70 FL (80-99) L Mean Corpuscular Hemoglobin 21.1 PG (27.0-31.0) L Mean Corpuscular Hemoglobin Concent 30.1 G/DL (32.0-36.0) L Red Cell Distribution Width 24.5 % (11.6-14.8) H Platelet Count 144 K/UL (150-450) L Mean Platelet Volume 8.1 FL (6.5-10.1) Neutrophils (%) (Auto) 42.7 % (45.0-75.0) L Lymphocytes (%) (Auto) 40.0 % (20.0-45.0) Monocytes (%) (Auto) 7.4 % (1.0-10.0) Eosinophils (%) (Auto) 8.5 % (0.0-3.0) H Basophils (%) (Auto) 1.3 % (0.0-2.0) Sodium Level 140 MMOL/L (136-145) Potassium Level 3.4 MMOL/L (3.5-5.1) L Chloride Level 106 MMOL/L (98-107) Carbon Dioxide Level 28 MMOL/L (21-32) Anion Gap 6 mmol/L (5-15) Blood Urea Nitrogen 7 mg/dL (7-18) Creatinine 0.8 MG/DL (0.55-1.30) Estimat Glomerular Filtration Rate > 60 mL/min (>60) Glucose Level 107 MG/DL (74-106) H Calcium Level 8.3 MG/DL (8.5-10.1) L Iron Level 21 ug/dL (50-175) L Total Iron Binding Capacity 267 ug/dL (250-450) Percent Iron Saturation 8 % (15-50) L Unsaturated Iron Binding 246 ug/dL (112-346) Ferritin 83 NG/ML (8-388) Total Bilirubin 0.4 MG/DL (0.2-1.0) Aspartate Amino Transf (AST/SGOT) 18 U/L (15-37) Alanine Aminotransferase (ALT/SGPT) 13 U/L (12-78) Alkaline Phosphatase 49 U/L (46-116) Total Protein 6.1 G/DL (6.4-8.2) #L Albumin 2.7 G/DL (3.4-5.0) L Globulin 3.4 g/dL Albumin/Globulin Ratio 0.8 (1.0-2.7) L Plan Additional Comments patient admitted with GI symptoms post discharge. now improved. no easy venous access. will attempt to advance diet, GI consult appreciated. may need PICC line. Kendrick Sommer MD Oct 27, 2018 19:48
[2018-10-27 20:00] VITALS: BP 117/72
[2018-10-27] MEDS ORDERED: Zolpidem 5mg tab ORAL PRN (21:00)
--- NOTE | 2018-10-27 21:05 | Consultation ---
History of Present Illness General Date patient seen: Oct 27, 2018 Chief Complaint: General Complaint Referring physician: SONNY Reason for Consultation: ABDOMINAL DISTENTION Present Illness HPI 43F well known to me from recent surgery and hospitalization. Was discharged safely after surgery. At time of discharge tolerating diet, ambulatory, with bowel function. Was home well but began to have abdominal distention, nausea, emesis. Came to ED for evaluation at which time CT demonstrated likely ileus. Admitted for care and management. General surgery called to evaluate. patient seen, chart reviewed, patient examined. Allergies: Coded Allergies: NSAIDS (NON-STEROIDAL ANTI-INFLAMMA (Verified Allergy, Unknown, 10/19/18) Medication History Scheduled PRN Ondansetron Odt* (Zofran Odt*), 8 MG ORAL Q6H PRN for Nausea & Vomiting, ( Reported) Oxycodone Hcl/Acetaminophen 7.5-325 Mg (Percocet 7.5-325 Mg Tablet), 1 TAB ORAL Q6H PRN for For Pain, (Reported) Patient History History Provided By: Patient, Medical Record, PMD Healthcare decision maker Resuscitation status Advanced Directive on File Past Medical/Surgical History Past Medical/Surgical History: (1) Anemia (2) Anemia (3) Therapeutic opioid-induced constipation (OIC) (4) Problem (5) Encounter for generalized patient complaints (6) Abdominal distention (7) Abdominal pain Review of Systems All Other Systems: negative except mentioned in HPI Physical Exam General Appearance: no apparent distress, alert Lines, tubes and drains: peripheral HEENT: mucous membranes moist Neck: normal inspection Respiratory/Chest: normal breath sounds, no respiratory distress Cardiovascular/Chest: normal rate Abdomen: soft, no organomegaly, no mass, decreased bowel sounds, distended, tender Extremities: normal inspection Skin Exam: warm/dry Neurologic: alert, oriented x 3 Last 24 Hour Vital Signs Date Time Temp Pulse Resp B/P (MAP) Pulse Ox O2 Delivery O2 Flow Rate FiO2 10/27/18 20:00 98.6 79 18 117/72 (87) 100 10/27/18 17:49 99.0 10/27/18 16:00 98.9 83 19 104/66 (79) 98 10/27/18 12:00 99.0 79 18 114/73 (87) 100 10/27/18 09:00 Room Air 10/27/18 08:00 98.3 87 18 110/69 (83) 10/27/18 04:00 98.4 71 14 100/63 (75) 99 10/27/18 04:00 98.7 10/27/18 00:00 98.7 79 14 107/64 (78) 100 Intake and Output 10/26/18 10/27/18 19:00 07:00 Intake Total 150 ml Balance 150 ml IV Total 150 ml # Voids 1 1 Laboratory Tests Test 10/27/18 05:25 White Blood Count 7.4 K/UL (4.8-10.8) Red Blood Count 3.83 M/UL (4.20-5.40) L Hemoglobin 8.1 G/DL (12.0-16.0) L Hematocrit 26.9 % (37.0-47.0) L Mean Corpuscular Volume 70 FL (80-99) L Mean Corpuscular Hemoglobin 21.1 PG (27.0-31.0) L Mean Corpuscular Hemoglobin Concent 30.1 G/DL (32.0-36.0) L Red Cell Distribution Width 24.5 % (11.6-14.8) H Platelet Count 144 K/UL (150-450) L Mean Platelet Volume 8.1 FL (6.5-10.1) Neutrophils (%) (Auto) 42.7 % (45.0-75.0) L Lymphocytes (%) (Auto) 40.0 % (20.0-45.0) Monocytes (%) (Auto) 7.4 % (1.0-10.0) Eosinophils (%) (Auto) 8.5 % (0.0-3.0) H Basophils (%) (Auto) 1.3 % (0.0-2.0) Sodium Level 140 MMOL/L (136-145) Potassium Level 3.4 MMOL/L (3.5-5.1) L Chloride Level 106 MMOL/L (98-107) Carbon Dioxide Level 28 MMOL/L (21-32) Anion Gap 6 mmol/L (5-15) Blood Urea Nitrogen 7 mg/dL (7-18) Creatinine 0.8 MG/DL (0.55-1.30) Estimat Glomerular Filtration Rate > 60 mL/min (>60) Glucose Level 107 MG/DL (74-106) H Calcium Level 8.3 MG/DL (8.5-10.1) L Iron Level 21 ug/dL (50-175) L Total Iron Binding Capacity 267 ug/dL (250-450) Percent Iron Saturation 8 % (15-50) L Unsaturated Iron Binding 246 ug/dL (112-346) Ferritin 83 NG/ML (8-388) Total Bilirubin 0.4 MG/DL (0.2-1.0) Aspartate Amino Transf (AST/SGOT) 18 U/L (15-37) Alanine Aminotransferase (ALT/SGPT) 13 U/L (12-78) Alkaline Phosphatase 49 U/L (46-116) Total Protein 6.1 G/DL (6.4-8.2) #L Albumin 2.7 G/DL (3.4-5.0) L Globulin 3.4 g/dL Albumin/Globulin Ratio 0.8 (1.0-2.7) L Height (Feet): 5 Height (Inches): 1.00 Weight (Pounds): 170 Medications Current Medications Medications (Trade) Dose Ordered Sig/Kyleigh Route PRN Reason Start Time Stop Time Status Last Admin Dose Admin Barium Sulfate (Readi-Cat 2) 450 ml NOW PRN ORAL Radiology Procedure 10/26/18 21:15 10/28/18 21:11 Bisacodyl (Dulcolax) 5 mg DAILY ORAL 10/27/18 09:00 11/26/18 08:59 10/27/18 10:19 Docusate Sodium (Colace) 100 mg TWICE A DAY ORAL 10/27/18 09:00 11/26/18 08:59 10/27/18 17:20 Hydromorphone HCl (Dilaudid) 1 mg Q3H PRN IVP Mild Pain (Pain Scale 1-3) 10/27/18 16:45 11/03/18 16:44 Hydromorphone HCl (Dilaudid) 1 mg Q3H PRN SUBQ Mild Pain (Pain Scale 1-3) 10/27/18 17:00 11/03/18 16:59 Hydromorphone HCl (Dilaudid) 1 mg Q3H PRN SUBQ Moderate Pain (Pain Scale 4-6) 10/27/18 19:15 11/03/18 16:14 Hydromorphone HCl (Dilaudid) 2 mg Q2H PRN IVP Severe Pain (Pain Scale 7-10) 10/27/18 16:45 11/03/18 16:44 Hydromorphone HCl (Dilaudid) 2 mg Q2H PRN SUBQ Severe Pain (Pain Scale 7-10) 10/27/18 18:15 11/03/18 16:14 10/27/18 17:19 Hydromorphone HCl (Dilaudid) 2 mg Q3H PRN IVP Moderate Pain (Pain Scale 4-6) 10/27/18 16:45 11/03/18 16:44 Iopamidol (Isovue-300 100ml) 100 ml NOW PRN INJ Radiology Procedure 10/26/18 21:15 10/28/18 21:14 Iron Sucrose 100 mg/Sodium Chloride 60 ml @ 240 mls/hr BEDTIME IV 10/28/18 21:00 11/01/18 21:14 Methylnaltrexone Allen (Relistor) 12 mg QOD SUBQ 10/27/18 09:00 11/26/18 08:59 10/27/18 10:20 Ondansetron HCl (Zofran) 4 mg Q6H PRN IVP Nausea & Vomiting 10/26/18 19:00 11/25/18 18:59 10/26/18 21:26 Polyethylene Glycol (Miralax) 17 gm DAILY ORAL 10/27/18 09:00 11/26/18 08:59 Potassium Chloride 20 meq/ Dextrose/Lactated Ringer's 1,010 ml @ 150 mls/hr Q6H44M IV 10/26/18 20:00 11/25/18 19:59 10/27/18 04:01 Zolpidem Tartrate (Ambien) 5 mg HSPRN PRN ORAL Insomnia 10/27/18 21:00 11/03/18 20:59 Assessment/Plan Problem List: (1) Abdominal distention Assessment & Plan: s/p subtotal hysterectomy with CHANG discharged home safely but returns with likely ileus CT noted. labs okay. awaiting return of bowel function npo iv fluids AM labs AM KUB thank you for allowing me to participate in patients care. ICD Codes: R14.0 - Abdominal distension (gaseous) SNOMED: 76405034 Status: stable Kaushik Castro Oct 27, 2018 21:05
[2018-10-28] VITALS: BP 124/78
[2018-10-28] MEDS ORDERED: Simethicone 80mg tab ORAL PRN (01:00)
[2018-10-28 04:00] VITALS: BP 120/75
[2018-10-28] MEDS: Potassium Chloride 20 MEQ in Dextrose 5%/Lactated Ringer's 1,000 ML IV SCH ×2 (05:21→13:22)
[2018-10-28 06:48] LABS: BASOPHILS % (AUTO) 0.8 % (0.0-2.0); EOSINOPHILS % (AUTO) 5.3 % (0.0-3.0); HEMATOCRIT 32.8 % (37.0-47.0); HEMOGLOBIN 9.9 G/DL (12.0-16.0); LYMPHOCYTES % (AUTO) 16.9 % (20.0-45.0); MEAN CORPUSCULAR VOLUME 71 FL (80-99); NEUTROPHILS % (AUTO) 71.1 % (45.0-75.0); PLATELET COUNT 315 K/UL (150-450); RED BLOOD COUNT 4.64 M/UL (4.20-5.40); RED CELL DISTRIBUTION WIDTH 24.4 % (11.6-14.8)
[2018-10-28 07:08] LABS: ALANINE AMINOTRANSFERASE 15 U/L (12-78); ALBUMIN 3.2 G/DL (3.4-5.0); ALBUMIN/GLOBULIN RATIO 0.8 (1.0-2.7); ALKALINE PHOSPHATASE 60 U/L (46-116); ANION GAP 8 mmol/L (5-15); ASPARTATE AMINO TRANSFERASE 16 U/L (15-37); BILIRUBIN,TOTAL 0.4 MG/DL (0.2-1.0); BLOOD UREA NITROGEN 5 mg/dL (7-18); CALCIUM 8.7 MG/DL (8.5-10.1); CARBON DIOXIDE 25 MMOL/L (21-32); CHLORIDE 105 MMOL/L (98-107); CREATININE 0.7 MG/DL (0.55-1.30); POTASSIUM 3.7 MMOL/L (3.5-5.1); SODIUM 138 MMOL/L (136-145)
[2018-10-28 08:23] VITALS: BP 110/73
[2018-10-28] MEDS: Miralax 17gm pkt ORAL SCH (09:00)
[2018-10-28] MEDS: Bisacodyl EC 5mg tab ORAL SCH (09:00)
[2018-10-28] MEDS: Docusate 100mg cap ORAL SCH (09:39)
--- NOTE | 2018-10-28 10:47 | Diagnostic Imaging Report ---
Indication: Abdominal pain Technique: Supine view of the abdomen Comparison: Telemarketing Supervisor image from CT scan 10/27/2018 Findings: Considerable gas is seen within the colon, which is nondistended. Distended gas-filled small bowel loops are seen centrally, appearance similar to prior exam. Ingested contrast from CT scan is seen entirely within the colon. Midline pelvic skin timur are again noted. Impression: Distended small bowel loops, unchanged from prior CT scan of a day earlier. However, ingested contrast is seen within the colon, having traversed the small bowel, indicating distention is presumably functional rather than on the basis of small bowel obstruction Images reviewed in person with Dr. Sommer at the time of interpretation
[2018-10-28 12:00] VITALS: BP 127/88
--- NOTE | 2018-10-28 12:26 | GI Progress Note ---
Assessment/Plan Problems: (1) Abdominal pain ICD Codes: R10.9 - Unspecified abdominal pain SNOMED: 88072581 (2) Abdominal distention ICD Codes: R14.0 - Abdominal distension (gaseous) SNOMED: 30548058 (3) Encounter for generalized patient complaints ICD Codes: Z00.8 - Encounter for other general examination SNOMED: 906612573 (4) Therapeutic opioid-induced constipation (OIC) ICD Codes: K59.03 - Drug induced constipation; T40.2X5A - Adverse effect of other opioids, initial encounter SNOMED: 913673921369957 (5) Anemia ICD Codes: D64.9 - Anemia, unspecified SNOMED: 875274413 (6) History of hysterectomy ICD Codes: Z90.710 - Acquired absence of both cervix and uterus SNOMED: 660562315, 267958674 Status: progressing Status Narrative Discussed with Dr. Burroughs. Assessment/Plan history of gastric bypass 2009 CT AP reviewed >> ileus adv diet encourage ambulation relistor QOD for OIC avoid opioids turn q2 hours simethicone prn await return of bowel function fu labs The patient was seen and examined at bedside and all new and available data was reviewed in the patients chart. I agree with the above findings, impression and plan. (Patient seen earlier today. Signature stamp does not reflect patient encounter time.). - Kevin Burroughs MD Subjective Subjective hungry abdominal distention passing small amounts of flatus small soft BM Objective Last 24 Hour Vital Signs Date Time Temp Pulse Resp B/P (MAP) Pulse Ox O2 Delivery O2 Flow Rate FiO2 10/28/18 09:00 Room Air 10/28/18 08:23 99.0 96 18 110/73 (85) 97 10/28/18 04:00 98.2 80 17 120/75 (90) 99 10/28/18 00:00 98.6 83 19 124/78 (93) 100 10/27/18 21:00 Room Air 10/27/18 20:00 98.6 79 18 117/72 (87) 100 10/27/18 17:49 99.0 10/27/18 16:00 98.9 83 19 104/66 (79) 98 Intake and Output 10/27/18 10/28/18 19:00 07:00 Intake Total 600 ml 1150 ml Balance 600 ml 1150 ml Intake Oral 450 ml 400 ml IV Total 150 ml 750 ml # Voids 1 2 Laboratory Tests Test 10/28/18 06:25 White Blood Count 11.0 K/UL (4.8-10.8) H Red Blood Count 4.64 M/UL (4.20-5.40) Hemoglobin 9.9 G/DL (12.0-16.0) L Hematocrit 32.8 % (37.0-47.0) L Mean Corpuscular Volume 71 FL (80-99) L Mean Corpuscular Hemoglobin 21.3 PG (27.0-31.0) L Mean Corpuscular Hemoglobin Concent 30.2 G/DL (32.0-36.0) L Red Cell Distribution Width 24.4 % (11.6-14.8) H Platelet Count 315 K/UL (150-450) # Mean Platelet Volume 7.6 FL (6.5-10.1) Neutrophils (%) (Auto) 71.1 % (45.0-75.0) Lymphocytes (%) (Auto) 16.9 % (20.0-45.0) L Monocytes (%) (Auto) 6.0 % (1.0-10.0) Eosinophils (%) (Auto) 5.3 % (0.0-3.0) H Basophils (%) (Auto) 0.8 % (0.0-2.0) Sodium Level 138 MMOL/L (136-145) Potassium Level 3.7 MMOL/L (3.5-5.1) Chloride Level 105 MMOL/L (98-107) Carbon Dioxide Level 25 MMOL/L (21-32) Anion Gap 8 mmol/L (5-15) Blood Urea Nitrogen 5 mg/dL (7-18) L Creatinine 0.7 MG/DL (0.55-1.30) Estimat Glomerular Filtration Rate > 60 mL/min (>60) Glucose Level 135 MG/DL (74-106) H Calcium Level 8.7 MG/DL (8.5-10.1) Total Bilirubin 0.4 MG/DL (0.2-1.0) Aspartate Amino Transf (AST/SGOT) 16 U/L (15-37) Alanine Aminotransferase (ALT/SGPT) 15 U/L (12-78) Alkaline Phosphatase 60 U/L (46-116) Total Protein 7.3 G/DL (6.4-8.2) Albumin 3.2 G/DL (3.4-5.0) L Globulin 4.1 g/dL Albumin/Globulin Ratio 0.8 (1.0-2.7) L Height (Feet): 5 Height (Inches): 1.00 Weight (Pounds): 165 General Appearance: WD/WN, no apparent distress, alert Cardiovascular: normal rate Respiratory/Chest: normal breath sounds, no respiratory distress Abdominal Exam: normal bowel sounds, non tender, soft Extremities: normal range of motion, non-tender Brittany Medina NP Oct 28, 2018 12:26
--- NOTE | 2018-10-28 14:29 | General Surgery Progress Note ---
General Surgery-Progress Note Subjective Procedure Performed abdominal hysterectomy Symptoms: improved, tolerating diet, passing flatus, BM Objective Last 24 Hour Vital Signs Date Time Temp Pulse Resp B/P (MAP) Pulse Ox O2 Delivery O2 Flow Rate FiO2 10/28/18 12:00 98.8 94 18 127/88 (101) 98 10/28/18 09:00 Room Air 10/28/18 08:23 99.0 96 18 110/73 (85) 97 10/28/18 04:00 98.2 80 17 120/75 (90) 99 10/28/18 00:00 98.6 83 19 124/78 (93) 100 10/27/18 21:00 Room Air 10/27/18 20:00 98.6 79 18 117/72 (87) 100 10/27/18 17:49 99.0 10/27/18 16:00 98.9 83 19 104/66 (79) 98 I&O Intake and Output 10/27/18 10/28/18 19:00 07:00 Intake Total 600 ml 1150 ml Balance 600 ml 1150 ml Intake Oral 450 ml 400 ml IV Total 150 ml 750 ml # Voids 1 2 Dressing: dry Wound: clean Drains: none Cardiovascular: RSR Respiratory: clear Abdomen: soft, flat, scaphoid, tenderness, present bowel sounds Laboratory Tests Test 10/28/18 06:25 White Blood Count 11.0 K/UL (4.8-10.8) H Red Blood Count 4.64 M/UL (4.20-5.40) Hemoglobin 9.9 G/DL (12.0-16.0) L Hematocrit 32.8 % (37.0-47.0) L Mean Corpuscular Volume 71 FL (80-99) L Mean Corpuscular Hemoglobin 21.3 PG (27.0-31.0) L Mean Corpuscular Hemoglobin Concent 30.2 G/DL (32.0-36.0) L Red Cell Distribution Width 24.4 % (11.6-14.8) H Platelet Count 315 K/UL (150-450) # Mean Platelet Volume 7.6 FL (6.5-10.1) Neutrophils (%) (Auto) 71.1 % (45.0-75.0) Lymphocytes (%) (Auto) 16.9 % (20.0-45.0) L Monocytes (%) (Auto) 6.0 % (1.0-10.0) Eosinophils (%) (Auto) 5.3 % (0.0-3.0) H Basophils (%) (Auto) 0.8 % (0.0-2.0) Sodium Level 138 MMOL/L (136-145) Potassium Level 3.7 MMOL/L (3.5-5.1) Chloride Level 105 MMOL/L (98-107) Carbon Dioxide Level 25 MMOL/L (21-32) Anion Gap 8 mmol/L (5-15) Blood Urea Nitrogen 5 mg/dL (7-18) L Creatinine 0.7 MG/DL (0.55-1.30) Estimat Glomerular Filtration Rate > 60 mL/min (>60) Glucose Level 135 MG/DL (74-106) H Calcium Level 8.7 MG/DL (8.5-10.1) Total Bilirubin 0.4 MG/DL (0.2-1.0) Aspartate Amino Transf (AST/SGOT) 16 U/L (15-37) Alanine Aminotransferase (ALT/SGPT) 15 U/L (12-78) Alkaline Phosphatase 60 U/L (46-116) Total Protein 7.3 G/DL (6.4-8.2) Albumin 3.2 G/DL (3.4-5.0) L Globulin 4.1 g/dL Albumin/Globulin Ratio 0.8 (1.0-2.7) L Imaging improved bowel distension on KUB Plan Additional Comments tolerating diet, pain controlled oral meds, patient has family emergency, needs to return home. will discharge. Kendrick Sommer MD Oct 28, 2018 14:29
--- NOTE | 2018-10-28 16:03 | General Surgery Progress Note ---
General Surgery-Progress Note Subjective Symptoms: improved, tolerating diet, passing flatus, BM Additional Comments states much better today. no n/v/f/c. had BM. passing flatus. distention resolved Objective Last 24 Hour Vital Signs Date Time Temp Pulse Resp B/P (MAP) Pulse Ox O2 Delivery O2 Flow Rate FiO2 10/28/18 12:00 98.8 94 18 127/88 (101) 98 10/28/18 09:00 Room Air 10/28/18 08:23 99.0 96 18 110/73 (85) 97 10/28/18 04:00 98.2 80 17 120/75 (90) 99 10/28/18 00:00 98.6 83 19 124/78 (93) 100 10/27/18 21:00 Room Air 10/27/18 20:00 98.6 79 18 117/72 (87) 100 10/27/18 17:49 99.0 I&O Intake and Output 10/27/18 10/28/18 19:00 07:00 Intake Total 600 ml 1150 ml Balance 600 ml 1150 ml Intake Oral 450 ml 400 ml IV Total 150 ml 750 ml # Voids 1 2 Wound: clean, dry, intact Drains: none Cardiovascular: RSR Respiratory: clear Abdomen: soft, flat, non-tender, present bowel sounds Extremities: no cyanosis Laboratory Tests Test 10/28/18 06:25 White Blood Count 11.0 K/UL (4.8-10.8) H Red Blood Count 4.64 M/UL (4.20-5.40) Hemoglobin 9.9 G/DL (12.0-16.0) L Hematocrit 32.8 % (37.0-47.0) L Mean Corpuscular Volume 71 FL (80-99) L Mean Corpuscular Hemoglobin 21.3 PG (27.0-31.0) L Mean Corpuscular Hemoglobin Concent 30.2 G/DL (32.0-36.0) L Red Cell Distribution Width 24.4 % (11.6-14.8) H Platelet Count 315 K/UL (150-450) # Mean Platelet Volume 7.6 FL (6.5-10.1) Neutrophils (%) (Auto) 71.1 % (45.0-75.0) Lymphocytes (%) (Auto) 16.9 % (20.0-45.0) L Monocytes (%) (Auto) 6.0 % (1.0-10.0) Eosinophils (%) (Auto) 5.3 % (0.0-3.0) H Basophils (%) (Auto) 0.8 % (0.0-2.0) Sodium Level 138 MMOL/L (136-145) Potassium Level 3.7 MMOL/L (3.5-5.1) Chloride Level 105 MMOL/L (98-107) Carbon Dioxide Level 25 MMOL/L (21-32) Anion Gap 8 mmol/L (5-15) Blood Urea Nitrogen 5 mg/dL (7-18) L Creatinine 0.7 MG/DL (0.55-1.30) Estimat Glomerular Filtration Rate > 60 mL/min (>60) Glucose Level 135 MG/DL (74-106) H Calcium Level 8.7 MG/DL (8.5-10.1) Total Bilirubin 0.4 MG/DL (0.2-1.0) Aspartate Amino Transf (AST/SGOT) 16 U/L (15-37) Alanine Aminotransferase (ALT/SGPT) 15 U/L (12-78) Alkaline Phosphatase 60 U/L (46-116) Total Protein 7.3 G/DL (6.4-8.2) Albumin 3.2 G/DL (3.4-5.0) L Globulin 4.1 g/dL Albumin/Globulin Ratio 0.8 (1.0-2.7) L Plan Problems: (1) Abdominal distention Assessment & Plan: s/p subtotal hysterectomy with CHANG discharged home safely but returns with likely ileus CT noted. labs okay. KUB noted labs noted exam improved start diet iv fluids AM labs thank you for allowing me to participate in patients care. Addendum: patient seen this AM at 9am. told that I would return in afternoon to reexamine after she has lunch. was informed patient had family emergency and left Kaushik Hayden Oct 28, 2018 16:03
[2018-10-28] MEDS ORDERED: Iron Sucrose 100 MG in NS 55 ML IV SCH (21:00)
--- NOTE | 2018-10-29 11:18 | Discharge Summary ---
Discharge Summary Discharge Summary _ DATE OF ADMISSION: 10/26/2018 DATE OF DISCHARGE: 10/28/2018 DISCHARGED BY: Dr. Kendrick Sommer CONSULTANTS: Dr. Kaushik Meredith [facility] COU[facility]SE: Patient is a 43-year-old female, who presented to ED complaining of diffuse abdominal pain. She had recent hysterectomy. She was tolerating intake upon discharge, however, at home, she began to have emesis and distention. She did not improved with Zofran. She had decreased oral intake secondary to nausea. She denied chest pain, diarrhea, fever or chills. Abdominal pain was 8 out of 10. C she has medical history for gastric bypass surgery in 2009, in 2000, seizure disorder, with no seizures since 2001 and under no medications. She has history of chronic anemia. She is status post hysterectomy. On evaluation at the ED, blood work was unremarkable. CT imaging of the abdomen showed progressive worsening distention of multiple loops of small bowel. She was then admitted for evaluation of nausea, vomiting, abdominal pain and distention. She was seen by GI. She was initially placed on n.p.o. with IV fluids. Patient had been on Percocet for pain. She was started on Relistor. Diet was eventually advanced. Surgeon was consulted. Bowel function was monitored. She was tolerating diet and was passing flatus. She had BMs. Abdominal distention resolved. She was eventually cleared for discharge. FINAL DIAGNOSES: Abdominal pain with abdominal distention Opioid-induced constipation Anemia Uterine leiomyomata that is post recent hysterectomy Morbid obesity with history of gastric bypass surgery DISPOSITION: Patient was discharged home. DISCHARGE INSTRUCTIONS: Follow-up in a week. I have been assigned to dictate discharge summary on this account, and I was not involved in the patient's management. Penny Lux NP Oct 29, 2018 11:18
== END 2018-10-28 13:54 | disposition home or self-care (01) | DRG 392 ==
LOC: EDBEDREQ 16:32 → EMR 17:12 → 3E 17:15 → EDBEDREQ 17:24 → 3E 18:11 → EDBEDREQ 18:11
DX: R10.9 Unspecified abdominal pain (principal); D64.9 Anemia, unspecified; Z88.6 Allergy status to analgesic agent; Z90.710 Acquired absence of both cervix and uterus; Z98.84 Bariatric surgery status; R14.0 Abdominal distension (gaseous); K59.03 Drug induced constipation; T40.2X5A Adverse effect of other opioids, initial encounter; E66.01 Morbid (severe) obesity due to excess calories
CPT/HCPCS: 36415; 74018; 74176; 80053; 82728; 83540; 83550; 83690; 85025; 87081; 96361; 96374; 96375; 99285; J2405